=== PATIENT | female | born 1940 | race Caucasian/White ===

== ENCOUNTER 2018-11-05 02:27 | Inpatient (IN) ==
--- NOTE | 2018-11-05 02:46 | Emergency Department Note ---
Disposition Clinical Impression: Atrial fibrillation with rapid ventricular response, Bronchitis with bronchospasm Dyspnea Qualifiers: Dyspnea type: shortness of breath Qualified Code(s): R06.02 - Shortness of breath Disposition: Admitted As Inpatient Condition: Fair Time of Disposition: 03:56 SOB HPI - General Chief Complaint: ED Shortness of Breath/Dyspnea Stated Complaint: Dyspnea onset 8 hours ago Time Seen by Provider: 11/05/18 02:41 Source: patient, EMS Mode of arrival: EMS Limitations: no limitations Nursing Notes Reviewed: Yes Vital Signs Reviewed: Yes - History of Present Illness Patient presents with a history of increased dyspnea over the last 8 hours. She states she has felt dry in her mouth and had some nausea and has vomited a couple times. She believes she might of pulled diarrhea just on arrival of EMS. He has not had significant swelling on arrival here. She has reported cough productive of some scant yellow phlegm. She reports chills but no definite fever. She denies associated chest pain but just the dyspnea. She has not had any ill exposures to GI illness or respiratory. She denies any foodborne illness concerns or recent antibiotic. She denies any abdominal pain and has had normal urination. She denies extremity swelling, immobilization or pain. She relates she was seen by one of her physicians last week and had a blood pressure of 150/90. She has not had a change to her blood pressure medicine. She is brought in by EMS with an IV established and Zofran given for nausea. She has no further nausea at this time. Her blood pressure was elevated about 160/110. She was saturating at 88% on room air is not on home oxygen. She would run about 91% on 2 L and 94% on 3 L. She arrives with some dyspnea and mild tachypnea but also speaking easily and persistently. Pt Subjective Complaint: shortness of breath Onset (ago): day(s) (1) Context: recent illness Severity: moderate, severe Consistency/Duration: gradually worsening Improves with: nothing Worsens with: coughing Known history of: asthma Associated symptoms: Reports: cough, wheezing, sputum production, nausea/vomiting. Denies: chest pain, pain with inspiration, fever, orthopnea, lower extremity pain, polyuria, polydipsia, parasthesias, palpitations, hemoptysis, diaphoresis, syncope, abdominal pain, rash, sense of impending doom Treatment prior to arrival: oxygen Cough present: Yes Cough Description: Voluntary, Productive Cough Frequency: Intermittent Sputum production: Yes Sputum Amount: Small Sputum Color: Yellow - Related Data Home oxygen amount: none Home Medications Medication Instructions Recorded Confirmed Aspirin Enteric Coated [Aspirin EC] 81 mg PO DAILY 02/18/15 11/05/18 Atorvastatin Calcium [Lipitor] 20 mg PO DAILY 02/18/15 11/05/18 Calcium Carbonate/Vitamin D3 1 each PO DAILY 02/18/15 11/05/18 [Calcium 600 + D Tablet] Levothyroxine [Synthroid] [place] [address]/18/15 11/05/18 Multivitamin/Iron/Folic Acid 1 tab PO DAILY 02/18/15 11/05/18 [Centrum Complete Multivit Tab] Amlodipine Besylate 2.5 mg PO DAILY 02/28/16 11/05/18 Vit C/E/Zn/Coppr/Lutein/Zeaxan 2 tab PO DAILY 02/28/16 11/05/18 [Preservision Areds 2 Softgel] Gabapentin [Neurontin] 300 mg PO DAILY 07/16/17 11/05/18 Albuterol Sulfate [Proair 2 puff IH PRN PRN 09/20/17 11/05/18 Respiclick] Budesonide/Formoterol 160/4.5 2 puff IH BIDR 09/20/17 11/05/18 [Symbicort 160/4.5] Glimepiride [Amaryl] 1 mg PO DAILY 09/20/17 11/05/18 Metoprolol Tartrate [Lopressor] 50 mg PO BID 09/20/17 11/05/18 Metformin HCl [Glucophage] 1,000 mg PO HS 09/19/18 11/05/18 metFORMIN [Glucophage] 500 mg PO DAILY 11/05/18 11/05/18 Previous Rx's Medication Instructions Recorded Olmesartan Medoxomil [Benicar] 40 mg PO DAILY #30 tablet 07/20/17 Allergies Allergy/AdvReac Type Severity Reaction Status Date / Time codeine AdvReac Nausea Verified 11/05/18 03:38 Iodinated Contrast- Oral and AdvReac Hives Verified 11/05/18 03:38 IV Dye [Iodinated Contrast Media - IV Dye] All systems ED: reviewed and negative except as stated. Past Medical History - Past Medical History Attestation: Yes The following information was validated with the patient. Source: patient, nursing notes reviewed Medical history: Reports: asthma, cancer (Thyroid and ductal breast cancer), diabetes, hyperlipidemia, hypertension, thyroid disease, other (Meningioma, left bundle branch block with frequent PVCs). Denies: CHF, coronary artery disease, DVT, myocardial infarction, pulmonary embolus Surgical history: Reports: breast surgery (Lumpectomy), cancer surgery (Thyroidectomy), cholecystectomy, herniorrhaphy, hysterectomy, orthopedic, other (Bilateral carpal tunnel), thyroidectomy Psychiatric history: Reports: no psych history COUNTY CORONER history: Reports: no COUNTY CORONER history - Social History Smoking Status: Never smoker Smokeless Tobacco Status: No Alcohol use: Reports: none Drug use: Reports: none Physical Exam - General Limitations: no limitations General appearance: alert, in no apparent distress, anxious - Head Head exam: atraumatic, normocephalic, normal inspection - Eye Eye exam: Present: normal appearance, PERRL, EOMI. Absent: scleral icterus, conjunctival injection - ENT ENT exam: normal exam, normal oropharynx, mucous membranes moist - Neck Neck exam: Present: normal inspection, full ROM, trachea midline. Absent: tenderness, meningismus, lymphadenopathy - Chest Chest inspection: Present: normal inspection, symmetric chest wall rise - Respiratory Respiratory exam: Present: prolonged expiratory phase. Absent: respiratory distress, wheezes, accessory muscle use - Cardiovascular Cardiovascular exam: Present: tachycardia, irregular rhythm - Abdominal Exam Abdominal exam: Present: soft, Non-Tender, normal bowel sounds. Absent: tenderness, distention, guarding, rebound, rigidity, mass, pulsatile mass, hernia - Extremities Exam Extremities exam: Present: normal inspection, full ROM, normal capillary refill. Absent: tenderness, pedal edema, calf tenderness - Expanded Lower Extremity Exam Neurovascular/Tendon exam: Present: normal capillary refill. Absent: motor deficit, sensory deficit, tendon deficit Gait: not tested/not observed - Back Exam Back exam: Present: normal inspection, full ROM. Absent: tenderness - Neurological Exam Neurological exam: Present: alert, oriented X3 - Psychiatric Psychiatric exam: Present: normal affect, anxious - Skin Skin exam: Present: warm, dry, intact, normal color. Absent: cyanosis, diaphoresis, pallor Course Course Narrative: Patient was seen immediately on arrival. Some of her history is somewhat difficult. She is able to say she had a blockage of the left side of her heart and his had irregular heartbeat. She does not appear to have history of atrial fibrillation does have chronic history of a left bundle-branch block. She has had a cardiac catheterization performed 2013 that was negative. She does not have history of heart failure, coronary disease, DVT or PE by old record or patient history. Given her cough, yellow sputum hypoxia she is started on r espiratory protocol home with a DuoNeb aerosol and administration of Rocephin, azithromycin and a dose of Solu-Medrol. Fluids are liberalized with a bolus pending return of x-ray and laboratory and will be curtailed if there is evidence for pulmonary edema. 0328: Patient's pressure is improved to 135/87 with a heart rate of 103. Heart rate still remains irregular on the monitor. She is saturating 94% with a respiratory rate of 24. She is speaking in full sentences. 0347: The patient continues to show improvement. She has a rate of 92 and respiratory rate of 18 and oxygen saturation 94%. Laboratory is remarkable for a lactic acid of 3.3. She has a mild leukocytosis. Her creatinine and CO2 are delayed. Chest x-ray is read by radiology as mild increase interstitial edema and a BNP of 606. Her IV fluids will be slowed after the first liter. Care has been discussed with the patient and family present. I recommended observation and a call has been placed to Dr. Dooley for inpatient observation. Patient's presentation and treatment of been discussed with Dr. Dooley. Verbal orders have been obtained for her observation. Vital Signs Temperature 97.8 F 11/05/18 02:30 Pulse Rate 108 11/05/18 02:30 Respiratory Rate 18 11/05/18 02:30 Blood Pressure 168/122 11/05/18 02:30 O2 Sat by Pulse Oximetry 93 11/05/18 02:30 Temperature 97.4 F L 11/05/18 04:44 Pulse Rate 104 11/05/18 04:44 Respiratory Rate 22 11/05/18 04:44 Blood Pressure 142/94 11/05/18 04:44 O2 Sat by Pulse Oximetry 90 11/05/18 04:44 Oxygen Delivery Oxygen Delivery Nasal Cannula Shortness of Breath/Dyspnea - Differential Diagnosis Likely: acute exacerbation of chronic obstructive airways disease, congestive heart failure, pneumonia, asthma with exacerbation, arrhythmia - Medical Records Medical records reviewed: Yes I reviewed the patient's medical records. MR/MR head/brain wo/w con IMPRESSION: Dural-based, homogeneously enhancing extra-axial mass arising from the inferior margin of the tentorium to the right of midline invading into the right transverse sinus which remains patent. This is most consistent with a meningioma. No significant mass effect or midline shift. D/ / 10/16/2018 10:47:24 Tony Calabrese MD / [place] - Lab Data Lab results reviewed: Yes I reviewed the patient's lab results. Result diagrams: 11/05/18 03:05 11/05/18 03:05 Lab Results 11/05/18 11/05/18 11/05/18 Range/Units 03:05 03:05 03:05 WBC 12.1 H (4.3-11.1) K/mcL RBC 4.59 (3.82-4.97) M/mcL Hgb 14.7 (11.5-15.4) g/dL Hct 43.5 (35.3-44.9) % MCV 94.8 (83.0-100.0) fL MCH 32.0 (28.0-33.3) pg MCHC 33.8 (31.6-35.5) g/dL RDW 13.1 (11.5-14.5) % Plt Count 209 (140-400) K/mcL MPV 10.5 (9.4-12.4) fL Immature Gran % 0.3 (0-4) % Seg Neutrophils % 75.1 % Lymphocytes % 17.7 % Monocytes % 6.1 % Eosinophils % 0.4 % Basophils % 0.4 % Neutrophils # 9.1 H (1.6-8.9) K/mcL Lymphocytes # 2.1 (0.6-4.6) K/mcL Monocytes # 0.7 (0.0-1.3) K/mcL Eosinophils # 0.1 (0.0-0.6) K/mcL Basophils # 0.1 (0.0-0.2) K/mcL PT 12.5 H (9.4-12.1) Seconds INR 1.1 Sodium 136 (136-145) mEq/L Potassium 3.9 (3.5-5.1) mEq/L Chloride 100 (98-107) mEq/L Carbon Dioxide 22 L (23-29) mEq/L BUN 12 (8-23) mg/dL Creatinine 0.84 (0.60-1.20) mg/dL Est GFR ( Amer) > 60 (> 60) Est GFR (Non-Af Amer) > 60 (> 60) BUN/Creatinine Ratio 14 (6-26) Glucose 205 H (70-105) mg/dL Calculated Osmolality 288 (280-300) Lactic Acid (0.5-2.2) mmol/L Calcium 9.0 (8.6-10.3) mg/dL Total Bilirubin 0.6 (0.3-1.0) mg/dL Direct Bilirubin 0.1 (0.0-0.2) mg/dL Indirect Bilirubin 0.5 (0.0-1.2) mg/dL AST 26 (13-39) Units/L ALT 25 (7-52) Units/L Alkaline Phosphatase 54 (34-104) Units/L Troponin I < 0.03 (< 0.04) ng/mL B-Natriuretic Peptide (Less than 100) pg/mL Serum Total Protein 7.3 (6.4-8.9) g/dL Albumin 4.2 (3.5-5.7) g/dL Globulin 3.1 (2.4-3.5) g/dL Albumin/Globulin Ratio 1.4 (1.1-2.2) 11/05/18 11/05/18 Range/Units 03:05 03:15 WBC (4.3-11.1) K/mcL RBC (3.82-4.97) M/mcL Hgb (11.5-15.4) g/dL Hct (35.3-44.9) % MCV (83.0-100.0) fL MCH (28.0-33.3) pg MCHC (31.6-35.5) g/dL RDW (11.5-14.5) % Plt Count (140-400) K/mcL MPV (9.4-12.4) fL Immature Gran % (0-4) % Seg Neutrophils % % Lymphocytes % % Monocytes % % Eosinophils % % Basophils % % Neutrophils # (1.6-8.9) K/mcL Lymphocytes # (0.6-4.6) K/mcL Monocytes # (0.0-1.3) K/mcL Eosinophils # (0.0-0.6) K/mcL Basophils # (0.0-0.2) K/mcL PT (9.4-12.1) Seconds INR Sodium (136-145) mEq/L Potassium (3.5-5.1) mEq/L Chloride (98-107) mEq/L Carbon Dioxide (23-29) mEq/L BUN (8-23) mg/dL Creatinine (0.60-1.20) mg/dL Est GFR ( Amer) (> 60) Est GFR (Non-Af Amer) (> 60) BUN/Creatinine Ratio (6-26) Glucose (70-105) mg/dL Calculated Osmolality (280-300) Lactic Acid 3.3 H (0.5-2.2) mmol/L Calcium (8.6-10.3) mg/dL Total Bilirubin (0.3-1.0) mg/dL Direct Bilirubin (0.0-0.2) mg/dL Indirect Bilirubin (0.0-1.2) mg/dL AST (13-39) Units/L ALT (7-52) Units/L Alkaline Phosphatase (34-104) Units/L Troponin I (< 0.04) ng/mL B-Natriuretic Peptide 603 H (Less than 100) pg/mL Serum Total Protein (6.4-8.9) g/dL Albumin (3.5-5.7) g/dL Globulin (2.4-3.5) g/dL Albumin/Globulin Ratio (1.1-2.2) - Radiology Data Radiology results reviewed: Yes I reviewed the patient's radiology results. Single view chest x-rays performed. This shows some patchy increased interstitial markings are most consistent right base. This is suggestive of possible infiltrate and seems less likely to be heart failure. This is new from CT imaging from October 08. Cardiac silhouette is mildly enlarged. She is not having effusion or pneumothorax. This is on my interpretation. Impressions Chest X-Ray 11/05/18 02:48 IMPRESSION: Mild cardiomegaly. Moderate pulmonary interstitial edema. D/ / Anel Wilkinson MD / Anel Wilkinson MD Interpreting Provider: Anel Wilkinson MD - EKG Data EKG attestation: Yes I reviewed and interpreted this EKG. EKG shows normal: Reports: axis, ST-T waves Rate: Reports: normal (96) Rhythm: Reports: A.Fib Carter/QRS: Reports: LBBB Interpretation: Reports: other (New-onset atrial fibrillation with chronic left bundle-branch block)
[2018-11-05] MEDS ORDERED: methylPREDNISolone 125 MG/2 ML VIAL IVP ONE (02:48)
[2018-11-05] MEDS ORDERED: Ipratropium/Albuterol Neb 3 ML IH ONE (02:48)
[2018-11-05] MEDS ORDERED: 0.9 % Sodium Chloride 1,000 ML IVC ONE (02:48)
[2018-11-05] MEDS ORDERED: Azithromycin 500 MG in D5% in Water 250 ML IVPB ONE (02:48)
[2018-11-05] MEDS ORDERED: cefTRIAXone 2,000 MG in Water for inj. (sterile) 10 ML IVP ONE (02:48)
[2018-11-05 03:24] LABS: Basophils # 0.1 K/mcL (0.0-0.2); Basophils % 0.4 %; Eosinophils # 0.1 K/mcL (0.0-0.6); Eosinophils % 0.4 %; Hematocrit 43.5 % (35.3-44.9); Hemoglobin 14.7 g/dL (11.5-15.4); Immature Granulocytes % 0.3 % (0-4); Lymphocytes # 2.1 K/mcL (0.6-4.6); Lymphocytes % 17.7 %; Mean Corpuscular HGB Conc 33.8 g/dL (31.6-35.5); Mean Corpuscular Volume 94.8 fL (83.0-100.0); Mean Platelet Volume 10.5 fL (9.4-12.4); Monocytes # 0.7 K/mcL (0.0-1.3); Monocytes % 6.1 %; Neutrophils # 9.1 K/mcL (1.6-8.9); Platelet Count 209 K/mcL (140-400); Red Blood Count 4.59 M/mcL (3.82-4.97); Red Cell Distribution Width 13.1 % (11.5-14.5); Segmented Neutrophils % 75.1 %; White Blood Count 12.1 K/mcL (4.3-11.1)
[2018-11-05 03:32] LABS: INR 1.1; Prothrombin Time 12.5 Seconds (9.4-12.1)
[2018-11-05 03:43] LABS: Troponin I < 0.03 ng/mL (< 0.04)
[2018-11-05 03:46] LABS: Alanine Aminotransferase 25 Units/L (7-52); Albumin 4.2 g/dL (3.5-5.7); Alkaline Phosphatase 54 Units/L (34-104); Aspartate Amino Transferase 26 Units/L (13-39); Bilirubin,Direct 0.1 mg/dL (0.0-0.2); Bilirubin,Indirect 0.5 mg/dL (0.0-1.2); Bilirubin,Total 0.6 mg/dL (0.3-1.0); Blood Urea Nitrogen 12 mg/dL (8-23); Chloride 100 mEq/L (98-107); Glucose 205 mg/dL (70-105); Osmolality,Calculated 288 (280-300); Potassium 3.9 mEq/L (3.5-5.1); Sodium 136 mEq/L (136-145)
[2018-11-05 04:27] LABS: Bilirubin,Urine Negative (Negative); Blood,Urine Trace-intact (Negative); Clarity,Urine Slightly Cloudy (Clear); Glucose,Urine (UA) 100 mg/dL (Normal); Ketones,Urine Trace mg/dL (Negative); Leukocyte Esterase,Urine Negative (Negative); Nitrite,Urine Negative (Negative); PH,Urine 5.5 pH Units (5.0-8.0); Protein,Urine 100 mg/dL (Neg-Trace); Specific Gravity,Urine 1.025 (1.010-1.025); Urobilinogen,Urine Normal (Normal)
[2018-11-05 04:31] LABS: Color,Urine Light Yellow (Yellow)
[2018-11-05 04:37] LABS: Hyaline Casts,Urine Few per lpf (None-Few); Squamous Epithelial Cell,Urine Few per lpf (None-Few)
[2018-11-05 04:38] LABS: RBC,Urine 0-3 per hpf (0-3)
[2018-11-05 04:39] LABS: Bacteria,Urine Few per hpf (None-Few); Mucus,Urine Few (Few); Renal Epithelial Cells,Urine Few per hpf (None-Few); WBC,Urine 0-3 per hpf (0-3)
[2018-11-05] MEDS ORDERED: Naloxone 0.4 MG/ML INJ IVP PRN (04:39)
[2018-11-05] MEDS ORDERED: Ondansetron ODT 4 MG TAB.RAPDIS SL PRN (04:39)
[2018-11-05] MEDS ORDERED: Mag Hydrox/Al Hydrox/Simeth 30 ML UDC PO PRN (04:39)
[2018-11-05] MEDS ORDERED: Albuterol 2.5 MG/3 ML NEBULIZER IH PRN (04:39)
[2018-11-05] MEDS ORDERED: *HR* Dextrose 50 % in Water (Syg) 50 ML SYRINGE IVP PRN (04:39)
[2018-11-05] MEDS ORDERED: D5% in Water 1,000 ML IVC PRN (04:39)
[2018-11-05] MEDS ORDERED: MOM Conc 10 ML UD.LIQ PO PRN (04:39)
[2018-11-05] MEDS ORDERED: 0.9 % Sodium Chloride 1,000 ML IVC SCH (04:39)
[2018-11-05] MEDS ORDERED: Dextrose Gel 15 GM/37.5 ML TUBE PO PRN ×2 (04:39)
[2018-11-05 05:14] LABS: Carbon Dioxide 22 mEq/L (23-29)
[2018-11-05 05:15] LABS: Albumin/Globulin Ratio 1.4 (1.1-2.2); BUN/Creatinine Ratio 14 (6-26); Globulin 3.1 g/dL (2.4-3.5); Total Protein 7.3 g/dL (6.4-8.9); eGFR For African Americans > 60 (> 60); eGFR For Non-African Americans > 60 (> 60)
[2018-11-05] MEDS: Insulin LISPRO 300 UNITS/3 ML VIAL SQ SCH ×3 (07:48→16:32)
[2018-11-05] MEDS ORDERED: predniSONE 20 MG TABLET PO SCH (08:00)
[2018-11-05] MEDS ORDERED: Ipratropium/Albuterol Neb 3 ML IH SCH (10:00)
[2018-11-05] MEDS ORDERED: *HR* Digoxin 0.5 MG/2 ML AMPUL IVP ONE (10:01)
[2018-11-05] MEDS ORDERED: Bumetanide 1 MG/4 ML VIAL IVP ONE (10:05)
[2018-11-05] MEDS ORDERED: *HR* Metoprolol 5 MG/5 ML VIAL IVP ONE (10:06)
--- NOTE | 2018-11-05 10:13 | Internal Med History&Physical ---
Date of Encounter: 11/05/18 Time of Encounter: 09:40 Assessment and Plan (1) Atrial fibrillation with rapid ventricular response Current visit: Yes Status: Acute She will be given IV Lanoxin and metoprolol to slow ventricular rate. Eliquis will be started for CVA prophylaxis. Continue telemetry monitoring. (2) Heart failure Current visit: Yes Status: Chronic Repeat echocardiogram will be done. She will be given IV Bumex. Toprol and Lanoxin will be given to slow ventricular rate. Pro-calcitonin level be checked to further evaluate possible superimposed infection. Qualifiers: Heart failure type: unspecified Heart failure chronicity: acute on chronic Qualified Code(s): I50.9 - Heart failure, unspecified (3) Leukocytosis Current visit: Yes Status: Acute WBC 12.1 with borderline left shift on differential. She has been started on Rocephin and Zithromax. Qualifiers: Leukocytosis type: unspecified Qualified Code(s): D72.829 - Elevated white blood cell count, unspecified (4) HTN (hypertension) Current visit: Yes Status: Chronic Continue metoprolol, Benicar and amlodipine. Qualifiers: Hypertension type: essential hypertension Qualified Code(s): I10 - Essential (primary) hypertension (5) DM type 2 (diabetes mellitus, type 2) Current visit: No Status: Chronic Hemoglobin A1c satisfactory at 6.1% on 08/13/2018. Continue Glucophage and Accu-Cheks with SSI. Qualifiers: Diabetes mellitus complication status: without complication Qualified Code(s): E11.9 - Type 2 diabetes mellitus without complications (6) B12 deficiency Current visit: No Status: Acute B12 level low at 203 on 09/14/2017. Recheck in a.m. (7) Hyperuricemia Current visit: Yes Status: Acute Uric acid level elevated at 10.3 on 07/18/2017. Recheck in a.m. Internal Medicine - H&P: HPI Chief complaint: Dyspnea Admitted From: Emergency Dept Plans for Post Hospital Care: Home History of present illness: Ms. Keyes is a 78 year old female who came to emergency room stating she had onset of dyspnea approximately 1700 day of admission while doing usual activities. There was no chest pain associated. There was minimal nonproductive cough. Dyspnea seemed to increase over ensuing hours. She came to emergency room and was evaluated and was found to have AF with RVR. It was also felt she had bronchitis with bronchospasm. She was admitted to [facility] floor for ongoing care needs. Cardiovascular history is pertinent for hypertension but no known NV angina DVT or pulmonary embolus. She has history of heart failure. Echocardiogram 02/25/2016 showed LVEF of 60-65%. There was mild aortic regurgitation. The interventricular septum and posterior wall thickness measurements were elevated at 1.30 and 1.20 cm respectively. E/A ratio was 1.2. There was reportedly no evidence of pulmonary hypertension although estimate RVSP was not recorded. She has history of atrial fibrillation. She is on aspirin but not OAC. Respiratory history significant for being a lifelong nonsmoker and having no documented chronic lung disease. Past Med Surg Social Fam HX - Past Medical History Medical history: asthma, cancer, diabetes, hyperlipidemia, hypertension, thyroid disease, other Additional medical history: thyriod cancer 2004, 2005 breast cancer Psychiatric history: no psych history - Past Surgical History Surgical History: breast surgery, cancer surgery, cholecystectomy, herniorrhaphy, hysterectomy, orthopedic, other, thyroidectomy Additional surgical history: Bilateral carpal tunnel - Social History Smoking Status: Never smoker Smokeless Tobacco Status: No Alcohol use: none Drug use: none - Family History Son Family Member Ethnicity: Non- Living Status: Hx Family Cardiac Disorders: Yes Hx Family Respiratory Disorders: No Hx Family Cancer: Yes Hx Family GI Disorders: No Hx Family Endocrine Disorder: No Hx Family Neuromuscular Disorders: No Hx Family Neurologic Disorders: No Hx Family HEENT Disorders: No Hx Family Autoimmune Disorders: No Internal Medicine - H&P: Meds Aspirin Enteric Coated [Aspirin EC] 81 mg PO DAILY 02/18/15 [History] Atorvastatin Calcium [Lipitor] 20 mg PO DAILY 02/18/15 [History] Calcium Carbonate/Vitamin D3 [Calcium 600 + D Tablet] 1 each PO DAILY 02/18/15 [History] Levothyroxine [Synthroid] 100 mcg PO 0630 02/18/15 [History] Multivitamin/Iron/Folic Acid [Centrum Complete Multivit Tab] 1 tab PO DAILY 02/18/15 [History] Amlodipine Besylate 2.5 mg PO DAILY 02/28/16 [History] Vit C/E/Zn/Coppr/Lutein/Zeaxan [Preservision Areds 2 Softgel] 2 tab PO DAILY 02/28/16 [History] Gabapentin [Neurontin] 300 mg PO DAILY 07/16/17 [History] Olmesartan Medoxomil [Benicar] 40 mg PO DAILY #30 tablet 07/20/17 [Rx] Albuterol Sulfate [Proair Respiclick] 2 puff IH PRN PRN 09/20/17 [History] Budesonide/Formoterol 160/4.5 [Symbicort 160/4.5] 2 puff IH BIDR 09/20/17 [History] Glimepiride [Amaryl] 1 mg PO DAILY 09/20/17 [History] Metoprolol Tartrate [Lopressor] 50 mg PO BID 09/20/17 [History] Metformin HCl [Glucophage] 1,000 mg PO HS 09/19/18 [History] metFORMIN [Glucophage] 500 mg PO DAILY 11/05/18 [History] Allergy/AdvReac Type Severity Reaction Status Date / Time codeine AdvReac Nausea Verified 11/05/18 03:38 Iodinated Contrast- Oral and AdvReac Hives Verified 11/05/18 03:38 IV Dye [Iodinated Contrast Media - IV Dye] All Systems PM: A 10-system review of systems was performed and is negative for pertinent findings except as documented above in the HPI. Review of systems: Review of systems from her 02/19/2015 [facility] hospitalization were reviewed and revised as below. Gen.: Her weight has been stable at approximately 62 kg since February 2015 hospitalization. Cardiovascular: As per history of present illness Respiratory: As per history of present illness GI: She has had cholecystectomy. She had colonoscopy approximately 2011 which she states was unremarkable. She denies disorders of her liver or exocrine pancreas. : She has had UTIs in the past. Reports remote kidney stone without recurrence. She denies other kidney or bladder disorders. Neurologic: She denies large distribution strokes or seizures. Endocrine: She was diagnosed with DM 2 approximately 2004. She had thyroidectomy for thyroid cancer in the past and is now on replacement le vothyroxine. She has history of hyperlipidemia Hematology/oncology: She had thyroid cancer with resection 2004. She had left breast cancer with lumpectomy 2005 followed by XRT. She follows with oncology at [facility] and is presumed cancer free. She denies other blood disorders or anemia Musk skeletal: She has had bilateral hand surgery for nodule removal and bilateral carpal tunnel surgery. She has a diagnosis of osteopenia. - Constitutional Vitals: Temp Pulse Resp BP Pulse Ox 97.6 F 140 20 136/65 94 11/05/18 07:12 11/05/18 07:56 11/05/18 07:12 11/05/18 07:56 11/05/18 07:56 Exam: Gen.: She is a well developed well-nourished female lying in bed who appears slightly dyspneic HEENT: Head is atraumatic and normocephalic. Eyes: EOMI. There is no scleral icterus. Mouth: Mucosa is moist. Neck: Supple and nontender. There is no thyromegaly or adenopathy noted. Heart: Irregularly irregular with rate approximately 160/m. Lungs: No wheezes or crackles are heard. Back: Straight without flank tenderness presacral edema Abdomen: Soft and nontender. No masses or guarding are noted. Extremities: There is no cyanosis edema or clubbing noted. Dorsalis pedis and posterior tibial pulses are trace to 1+ palpable bilaterally. Neurologic: Mental status: She is talkative and a good historian. Cranial nerves: Smile is symmetric. Forehead wrinkles bilaterally. Tongue protrudes midline. EOMI. Motor: There is no pronator drift. Cerebellar: Finger to nose is intact bilaterally. Skin: Warm and dry Internal Med - H&P Results - Labs CBC & Chem 7: 11/05/18 03:05 11/05/18 03:05 Labs: Short CBC 11/05/18 Range/Units 03:05 WBC 12.1 H (4.3-11.1) K/mcL Hgb 14.7 (11.5-15.4) g/dL Hct 43.5 (35.3-44.9) % Plt Count 209 (140-400) K/mcL Neutrophils # 9.1 H (1.6-8.9) K/mcL BMP 11/05/18 03:05 Sodium 136 Potassium 3.9 Chloride 100 Carbon Dioxide 22 L BUN 12 Creatinine 0.84 Glucose 205 H Calcium 9.0 Cardiac Enzymes 11/05/18 11/05/18 Range/Units 03:05 09:08 Troponin I < 0.03 0.03 (< 0.04) ng/mL Liver Function 11/05/18 Range/Units 03:05 Total Bilirubin 0.6 (0.3-1.0) mg/dL Direct Bilirubin 0.1 (0.0-0.2) mg/dL AST 26 (13-39) Units/L ALT 25 (7-52) Units/L Alkaline Phosphatase 54 (34-104) Units/L Albumin 4.2 (3.5-5.7) g/dL Urine 11/05/18 Range/Units 04:26 Urine Color Light Yellow (Yellow) Urine Clarity Slightly Cloudy A (Clear) Urine pH 5.5 (5.0-8.0) pH Units Ur Specific [place] 1.025 (1.010-1.025) Urine Protein 100 H (Neg-Trace) mg/dL Urine Glucose (UA) 100 H (Normal) mg/dL - Impressions ITS Impressions Chest X-Ray 11/05/18 02:48 IMPRESSION: Mild cardiomegaly. Moderate pulmonary interstitial edema. D/ / Anel Wilkinson MD / Aenl Wilkinson MD Interpreting Provider: Anel Wilkinson MD
[2018-11-05] MEDS: predniSONE 20 MG TABLET PO SCH ×2 (10:58→16:32)
[2018-11-05] MEDS: amLODIPine 5 MG TABLET PO SCH (12:05)
[2018-11-05] MEDS: Apixaban 5 MG TABLET PO SCH ×2 (12:05→20:19)
--- NOTE | 2018-11-05 13:45 | Electrocardiograph Report ---
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
[2018-11-05] MEDS ORDERED: Acetaminophen/Aspirin/Caffeine TABLET PO PRN (21:26)
[2018-11-06] MEDS: Insulin LISPRO 300 UNITS/3 ML VIAL SQ SCH ×5 (00:14→20:31)
[2018-11-06 06:15] LABS: Basophils % 0.1 %; Hematocrit 34.3 % (35.3-44.9); Hemoglobin 11.7 g/dL (11.5-15.4); Immature Granulocytes % 0.7 % (0-4); Lymphocytes # 0.9 K/mcL (0.6-4.6); Lymphocytes % 8.2 %; Mean Corpuscular HGB Conc 34.1 g/dL (31.6-35.5); Mean Corpuscular Hemoglobin 31.7 pg (28.0-33.3); Monocytes # 0.7 K/mcL (0.0-1.3); Monocytes % 6.7 %; Neutrophils # 8.9 K/mcL (1.6-8.9); Platelet Count 165 K/mcL (140-400); Red Blood Count 3.69 M/mcL (3.82-4.97); Red Cell Distribution Width 12.9 % (11.5-14.5); Segmented Neutrophils % 84.3 %; White Blood Count 10.5 K/mcL (4.3-11.1)
[2018-11-06 06:34] LABS: BUN/Creatinine Ratio 25 (6-26); Blood Urea Nitrogen 21 mg/dL (8-23); Calcium 8.4 mg/dL (8.6-10.3); Carbon Dioxide 23 mEq/L (23-29); Chloride 101 mEq/L (98-107); Glucose 157 mg/dL (70-105); Magnesium 1.9 mg/dL (1.6-2.6); Osmolality,Calculated 282 (280-300); Potassium 4.4 mEq/L (3.5-5.1); Sodium 133 mEq/L (136-145); Uric Acid 6.5 mg/dL (2.3-7.6); eGFR For African Americans > 60 (> 60); eGFR For Non-African Americans > 60 (> 60)
[2018-11-06 06:52] LABS: Thyroid Stimulating Hormone 0.494 mcIU/mL (0.340-5.600)
[2018-11-06] MEDS ORDERED: Azithromycin 500 MG in D5% in Water 250 ML IVPB SCH (09:00)
[2018-11-06] MEDS: Apixaban 5 MG TABLET PO SCH ×2 (09:32→20:30)
[2018-11-06] MEDS: predniSONE 20 MG TABLET PO SCH (09:33)
[2018-11-06] MEDS: amLODIPine 5 MG TABLET PO SCH (09:33)
[2018-11-06] MEDS ORDERED: cefTRIAXone 2,000 MG in Water for inj. (sterile) 20 ML IVPB SCH (12:00)
[2018-11-06] MEDS ORDERED: Cyanocobalamin (B-12) 1,000 MCG/ML VIAL IM ONE (14:19)
--- NOTE | 2018-11-06 14:39 | Internal Med Progress Note ---
Date of Encounter: 11/06/18 Time of Encounter: 14:25 - Assessment and plan (1) Atrial fibrillation with rapid ventricular response Current Visit: Yes Status: Acute Assessment and plan: November 06. Remains in atrial fibrillation but rate is now controlled. Continue metoprolol. Continue Eliquis for CVA prophylaxis. (2) Heart failure Current Visit: Yes Status: Chronic Assessment and plan: November 06. Echocardiogram shows LVEF of 50%. There was indeterminate diastolic function assessment due to atrial fibrillation. There was mild to moderate mitral regurgitation, [id number] aortic regurgitation, and mild tricuspid regurgitation. Estimated RVSP was 25 mmHg. The interventricular septum and posterior wall thickness measurements were 1.30 cm each. Metoprolol and ARB will be continued. Bumex will be added. Qualifiers: Heart failure type: unspecified Heart failure chronicity: acute on chronic Qualified Code(s): I50.9 - Heart failure, unspecified (3) Leukocytosis Current Visit: Yes Status: Acute Assessment and plan: November 06. WBC normal at 10.5. Left shift is present. She remains afebrile. Pro-calcitonin level was < 0.02. Recheck labs in a.m. Qualifiers: Leukocytosis type: unspecified Qualified Code(s): D72.829 - Elevated white blood cell count, unspecified (4) HTN (hypertension) Current Visit: Yes Status: Chronic Assessment and plan: November 06. Blood pressure stable. Continue metoprolol, ARB, and amlodipine. Qualifiers: Hypertension type: essential hypertension Qualified Code(s): I10 - Essential (primary) hypertension (5) DM type 2 (diabetes mellitus, type 2) Current Visit: No Status: Chronic Assessment and plan: November 06. Hemoglobin A1c satisfactory at 6.1% on 08/13/2018. Continue Glucophage and Accu-Cheks with SSI. Qualifiers: Diabetes mellitus complication status: without complication Qualified Code(s): E11.9 - Type 2 diabetes mellitus without complications (6) B12 deficiency Current Visit: No Status: Acute Assessment and plan: November 06. B12 level low at 153. She will be given a B12 injection and start oral B12 supplement. (7) Hyperuricemia Current Visit: Yes Status: Acute Assessment and plan: November 06. Uric acid level normal at 6.5. - Subjective Interval history: November 06. She has no new complaints and feels better overall. She has minimal residual dyspnea. - Constitutional Vitals: Temp Pulse Resp BP Pulse Ox 97.6 F 91 17 120/70 98 11/06/18 11:16 11/06/18 11:16 11/06/18 11:16 11/06/18 11:16 11/06/18 11:16 Exam: She is resting comfortably in bed and appears in no acute distress. Heart is irregularly irregular with rate 92/m. Lungs are clear anteriorly. Extremities show no edema. She is wearing ADAM hose. I reviewed her medications and lab results. Internal Medicine: Result - Labs CBC & Chem 7: 11/06/18 04:51 11/06/18 04:51 Labs: Short CBC 11/06/18 Range/Units 04:51 WBC 10.5 (4.3-11.1) K/mcL Hgb 11.7 D (11.5-15.4) g/dL Hct 34.3 L (35.3-44.9) % Plt Count 165 (140-400) K/mcL Neutrophils # 8.9 (1.6-8.9) K/mcL BMP 11/06/18 04:51 Sodium 133 L Potassium 4.4 Chloride 101 Carbon Dioxide 23 BUN 21 Creatinine 0.85 Glucose 157 H Calcium 8.4 L - ABG Interpretation ABG results: PT/INR, D-dimer PT 12.5 Seconds (9.4-12.1) H 11/05/18 03:05 - Impressions Impressions Echocardiogram 11/05/18 10:59 Impressions: LVEF 50%. Indeterminate diastolic function. Mild LV concentric hypertrophy. Atypical septal motion consistent with bundle branch block. Normal right ventricular structure and function. Mild-moderate mitral regurgitation. Mild-moderate aortic regurgitation. Mild tricuspid regurgitation. No pulmonary hypertension. Left Ventricular Wall Motion: Rest Echo Findings All wall segments showed normal motion. Findings: Study Quality * Technically adequate exam. ECG Findings * Atrial fibrillation. Left Ventricle * LVEF 50%. * Indeterminate diastolic function. * Mild LV concentric hypertrophy. * Atypical septal motion consistent with bundle branch block. Right Ventricle * Normal right ventricular structure and function. Left Atrium * Moderately dilated left atrium. Right Atrium * Normal right atrial size. Mitral Valve * No mitral stenosis. * Mildly thickened mitral valve leaflets. * Moderate mitral annular calcification * Mild-moderate mitral regurgitation. Aortic Valve * Mild-moderate aortic regurgitation. * Aortic valve not well visualized. * Mildly calcified aortic valve leaflets. * No aortic stenosis. Tricuspid Valve * Mild tricuspid regurgitation. * Normal tricuspid valve structure. * Estimated RA pressure is 3 mmHg. * Estimated RVSP is 25 mmHg. * No pulmonary hypertension. Pulmonic Valve * Pulmonic valve is not well visualized. * No pulmonic stenosis. * Trace pulmonic regurgitation. Pulmonary Artery * Pulmonary artery not well visualized. Aorta * Normally sized aortic root. Pericardium * There is no pericardial effusion present. Interatrial Septum * No evidence of PFO by color Doppler. IVC * The IVC is not dilated. Consult Discharge Plan - Plan
[2018-11-06] MEDS: Bumetanide 1 MG TABLET PO SCH (15:21)
[2018-11-06] MEDS: *HR* Metformin 500 MG TABLET PO SCH (16:57)
[2018-11-07 06:57] LABS: Basophils % 0.1 %; Hematocrit 36.6 % (35.3-44.9); Hemoglobin 12.6 g/dL (11.5-15.4); Immature Granulocytes % 0.5 % (0-4); Lymphocytes % 21.9 %; Mean Corpuscular HGB Conc 34.4 g/dL (31.6-35.5); Mean Corpuscular Hemoglobin 32.1 pg (28.0-33.3); Mean Corpuscular Volume 93.4 fL (83.0-100.0); Mean Platelet Volume 10.8 fL (9.4-12.4); Monocytes # 0.8 K/mcL (0.0-1.3); Monocytes % 5.9 %; Neutrophils # 9.3 K/mcL (1.6-8.9); Platelet Count 187 K/mcL (140-400); Red Blood Count 3.92 M/mcL (3.82-4.97); Red Cell Distribution Width 13.2 % (11.5-14.5); Segmented Neutrophils % 71.6 %
[2018-11-07 07:11] LABS: Lymphocytes # 2.9 K/mcL (0.6-4.6)
[2018-11-07 07:14] VITALS: BP 144/101
[2018-11-07 07:21] LABS: BUN/Creatinine Ratio 26 (6-26); Blood Urea Nitrogen 22 mg/dL (8-23); Carbon Dioxide 29 mEq/L (23-29); Chloride 100 mEq/L (98-107); Glucose 87 mg/dL (70-105); Osmolality,Calculated 287 (280-300); Potassium 4.1 mEq/L (3.5-5.1); Sodium 137 mEq/L (136-145); eGFR For African Americans > 60 (> 60); eGFR For Non-African Americans > 60 (> 60)
[2018-11-07] MEDS: Insulin LISPRO 300 UNITS/3 ML VIAL SQ SCH (07:50)
[2018-11-07] MEDS: amLODIPine 5 MG TABLET PO SCH (08:05)
[2018-11-07] MEDS: Bumetanide 1 MG TABLET PO SCH (08:05)
[2018-11-07] MEDS: *HR* Metformin 500 MG TABLET PO SCH (08:06)
[2018-11-07] MEDS: Apixaban 5 MG TABLET PO SCH (08:06)
--- NOTE | 2018-11-07 10:10 | Discharge Summary ---
Orders not resulted at time of discharge: Pending orders 11/05/18 03:15 Culture,Blood [] Stat Date of Encounter: 11/07/18 Time of Encounter: 09:55 - Discharge Diagnosis (1) Atrial fibrillation with rapid ventricular response Priority: Primary Status: Acute (2) Heart failure Priority: Secondary Status: Chronic Qualifiers: Heart failure type: unspecified Heart failure chronicity: acute on chronic Qualified Code(s): I50.9 - Heart failure, unspecified (3) Leukocytosis Priority: Secondary Status: Acute Qualifiers: Leukocytosis type: unspecified Qualified Code(s): D72.829 - Elevated white blood cell count, unspecified (4) HTN (hypertension) Priority: Secondary Status: Chronic Qualifiers: Hypertension type: essential hypertension Qualified Code(s): I10 - Essential (primary) hypertension (5) DM type 2 (diabetes mellitus, type 2) Priority: Secondary Status: Chronic Qualifiers: Diabetes mellitus complication status: without complication Qualified Code(s): E11.9 - Type 2 diabetes mellitus without complications (6) B12 deficiency Priority: Secondary Status: Acute (7) Hyperuricemia Priority: Secondary Status: Resolved Hospital course: Ms. Keyes is a 78 year old female who came to emergency room stating she had onset of dyspnea approximately 1700 day of admission while doing usual activities. There was no chest pain associated. There was minimal nonproductive cough. Dyspnea seemed to increase over ensuing hours. She came to emergency room and was evaluated and was found to have AF with RVR. It was also felt she had bronchitis with bronchospasm. She was admitted to [facility] floor for ongoing care needs. Initial orders were written by the emergency room physician. I saw her on November 05 and performed a history and physical. She was given a single dose of IV Lanoxin and metoprolol. Her ventricular rate slowed and remained satisfactory throughout remainder of hospital stay. Blood pressure was slightly above desirable range so metoprolol dose will be increased to 100 mg twice a day. Eliquis was started for CVA prophylaxis and aspirin was discontinued. Echocardiogram showed LVEF of 50%. There was indeterminate diastolic function assessment due to atrial fibrillation. There was mild to moderate mitral regurgitation, [id number] aortic regurgitation, and mild tricuspid r egurgitation. Estimated RVSP was 25 mmHg. The interventricular septum and posterior wall thickness measurements were 1.30 cm each. BN peptide was elevated at 603 on admission. She was started on Bumex. Her dyspnea was essentially resolved by day of discharge. She will continue Bumex at discharge. Supplemental potassium will be given to avoid hypokalemia. B12 level returned low at 153. She was given a B12 injection and started on oral B12 supplement. Her PCP can monitor labs. WBC was slightly elevated at 13.0 day of discharge. There was no left shift on differential however. Pro-calcitonin level and admission was < 0.02. She remained afebrile. Her PCP can follow up as needed. TSH returned normal at 0.494. On November 07 she felt significantly improved and wished to be discharged home. She will follow with her PCP Dr. Macias within 1 week. - Time Spent with Patient Total time spent providing and/or coordinating discharge services: - Discharge Medications Prescriptions: New Bumetanide [Bumex] 1 mg PO DAILY #30 tablet Apixaban [Eliquis] 5 mg PO BID #60 tablet Metoprolol [Lopressor] 100 mg PO BID #60 tablet Potassium Chloride 10 meq PO DAILY #30 tab.er.prt Cyanocobalamin (B-12) [Vitamin B12] 1,000 mcg PO DAILY #30 tablet Continued Vit C/E/Zn/Coppr/Lutein/Zeaxan [Preservision Areds 2 Softgel] 2 tab PO DAILY Amlodipine Besylate 2.5 mg PO DAILY Gabapentin [Neurontin] 300 mg PO DAILY Olmesartan Medoxomil [Benicar] 40 mg PO DAILY #30 tablet Budesonide/Formoterol 160/4.5 [Symbicort 160/4.5] 2 puff IH BIDR Glimepiride [Amaryl] 1 mg PO DAILY Albuterol Sulfate [Proair Respiclick] 2 puff IH PRN PRN PRN Reason: Shortness Of Breath Metformin HCl [Glucophage] 1,000 mg PO HS Levothyroxine [Synthroid] 100 mcg PO 0630 Multivitamin/Iron/Folic Acid [Centrum Complete Multivit Tab] 1 tab PO DAILY Calcium Carbonate/Vitamin D3 [Calcium 600 + D Tablet] 1 each PO DAILY Atorvastatin Calcium [Lipitor] 20 mg PO DAILY metFORMIN [Glucophage] 500 mg PO DAILY Discontinued Metoprolol Tartrate [Lopressor] 50 mg PO BID Aspirin Enteric Coated [Aspirin EC] 81 mg PO DAILY Home Medications: Atorvastatin Calcium [Lipitor] 20 mg PO DAILY 02/18/15 [History] Calcium Carbonate/Vitamin D3 [Calcium 600 + D Tablet] 1 each PO DAILY 02/18/15 [History] Levothyroxine [Synthroid] 100 mcg PO 0630 02/18/15 [History] Multivitamin/Iron/Folic Acid [Centrum Complete Multivit Tab] 1 tab PO DAILY 02/18/15 [History] Amlodipine Besylate 2.5 mg PO DAILY 02/28/16 [History] Vit C/E/Zn/Coppr/Lutein/Zeaxan [Preservision Areds 2 Softgel] 2 tab PO DAILY 02/28/16 [History] Gabapentin [Neurontin] 300 mg PO DAILY 07/16/17 [History] Olmesartan Medoxomil [Benicar] 40 mg PO DAILY #30 tablet 07/20/17 [Rx] Albuterol Sulfate [Proair Respiclick] 2 puff IH PRN PRN 09/20/17 [History] Budesonide/Formoterol 160/4.5 [Symbicort 160/4.5] 2 puff IH BIDR 09/20/17 [History] Glimepiride [Amaryl] 1 mg PO DAILY 09/20/17 [History] Metformin HCl [Glucophage] 1,000 mg PO HS 09/19/18 [History] metFORMIN [Glucophage] 500 mg PO DAILY 11/05/18 [History] Apixaban [Eliquis] 5 mg PO BID #60 tablet 11/07/18 [Rx] Bumetanide [Bumex] 1 mg PO DAILY #30 tablet 11/07/18 [Rx] Cyanocobalamin (B-12) [Vitamin B12] 1,000 mcg PO DAILY #30 tablet 11/07/18 [Rx] Metoprolol [Lopressor] 100 mg PO BID #60 tablet 11/07/18 [Rx] Potassium Chloride 10 meq PO DAILY #30 tab.er.prt 11/07/18 [Rx] Allergies/Adverse Reactions: Allergy/AdvReac Type Severity Reaction Status Date / Time codeine AdvReac Nausea Verified 11/05/18 03:38 Iodinated Contrast- Oral and AdvReac Hives Verified 11/05/18 03:38 IV Dye [Iodinated Contrast Media - IV Dye] Date of admission: 11/05/18 11:01 Primary care physician: Suman Macias MD Consults: 11/05/18 04:55 Consult to Pastoral Services [CONS] Routine Comment: - Constitutional Vitals: Temp Pulse Resp BP Pulse Ox 97.8 F 99 17 144/101 95 11/07/18 07:11 11/07/18 07:11 11/07/18 07:11 11/07/18 07:11 11/07/18 07:11 - Patient Status Disposition: Home, Self-Care Condition: Fair - Discharge Instructions Follow Up With: Suman Macias MD [Primary Care Provider] - 1 week Forms: ED Satisfaction Letter - Diet and Activity Activity: resume usual activities as tolerated Diet: low salt diet
== END 2018-11-07 11:45 | disposition home or self-care (01) | DRG 310 ==
LOC: EMEROOPIK 02:27 → INPPIK 02:27
PROVIDERS: ADMIT Internal Medicine; ATTEND Internal Medicine

== ENCOUNTER 2019-10-26 02:09 | Inpatient (IN) ==
[2019-10-26 02:59] LABS: Basophils % 0.1 %; Hematocrit 34.5 % (35.3-44.9); Hemoglobin 11.9 g/dL (11.5-15.4); Immature Granulocytes % 0.4 % (0-4); Lymphocytes # 1.3 K/mcL (0.6-4.6); Lymphocytes % 10.9 %; Mean Corpuscular HGB Conc 34.5 g/dL (31.6-35.5); Mean Corpuscular Hemoglobin 32.5 pg (28.0-33.3); Mean Corpuscular Volume 94.3 fL (83.0-100.0); Mean Platelet Volume 10.5 fL (9.4-12.4); Monocytes # 0.7 K/mcL (0.0-1.3); Monocytes % 6.1 %; Neutrophils # 9.7 K/mcL (1.6-8.9); Platelet Count 208 K/mcL (140-400); Red Blood Count 3.66 M/mcL (3.82-4.97); Red Cell Distribution Width 13.4 % (11.5-14.5); Segmented Neutrophils % 82.5 %; White Blood Count 11.8 K/mcL (4.3-11.1)
[2019-10-26 03:07] LABS: INR 1.3; Prothrombin Time 14.2 Seconds (9.4-12.1)
[2019-10-26 03:18] LABS: BUN/Creatinine Ratio 24 (6-26); Blood Urea Nitrogen 26 mg/dL (8-23); Calcium 8.9 mg/dL (8.6-10.3); Carbon Dioxide 25 mEq/L (23-29); Chloride 96 mEq/L (98-107); Glucose 205 mg/dL (70-105); Osmolality,Calculated 283 (280-300); Potassium 4.9 mEq/L (3.5-5.1); Sodium 131 mEq/L (136-145); Troponin I < 0.03 ng/mL (< 0.04); eGFR For African Americans 58 (> 60); eGFR For Non-African Americans 48 (> 60)
[2019-10-26] MEDS ORDERED: Furosemide 40 MG/4 ML VIAL IVP ONE (03:58)
[2019-10-26] MEDS ORDERED: Dextrose Gel 15 GM/37.5 ML TUBE PO PRN ×4 (04:25→04:57)
[2019-10-26] MEDS ORDERED: *HR* Dextrose 50 % in Water (Vial) 50 ML VIAL IVP PRN ×2 (04:25→04:57)
[2019-10-26] MEDS ORDERED: D5% in Water 1,000 ML IVC PRN ×2 (04:25→04:57)
[2019-10-26] MEDS ORDERED: Ondansetron 4 MG/2 ML VIAL IVP ONE ×2 (04:29→04:57)
[2019-10-26] MEDS ORDERED: Levalbuterol 1 PUFF INHALER IH PRN (05:55)
[2019-10-26] MEDS ORDERED: Insulin LISPRO 300 UNITS/3 ML VIAL SQ SCH ×2 (07:30→21:00)
[2019-10-26] MEDS ORDERED: Levalbuterol Neb 1.25 MG/3 ML IH PRN (07:53)
[2019-10-26] MEDS ORDERED: *HR* Metformin 500 MG TABLET PO SCH ×2 (08:00→21:00)
[2019-10-26 08:43] LABS: VBG Ionized Calcium 1.05 mmol/L (1.15-1.35)
[2019-10-26] MEDS ORDERED: *HR* Metoprolol 5 MG/5 ML VIAL IVP ONE (08:49)
[2019-10-26] MEDS: Multivit/Ca/Min/Fe/FA 1 TAB TABLET PO SCH (08:54)
[2019-10-26] MEDS: Apixaban 5 MG TABLET PO SCH ×2 (08:55→20:28)
[2019-10-26] MEDS: Cyanocobalamin (B-12) 1,000 MCG TABLET PO SCH (08:55)
[2019-10-26] MEDS: Insulin LISPRO 300 UNITS/3 ML VIAL SQ SCH ×4 (08:56→20:28)
[2019-10-26] MEDS ORDERED: *HR* Glimepiride 2 MG TABLET PO SCH (09:00)
[2019-10-26] MEDS: Furosemide 20 MG/2 ML VIAL IVP SCH ×2 (09:04→18:01)
[2019-10-26] MEDS: MethylPREDNISolone 40 MG/ML VIAL IVP SCH ×2 (09:08→18:01)
[2019-10-26] MEDS: amLODIPine 5 MG TABLET PO SCH (09:10)
[2019-10-26 09:48] LABS: Triiodothyronine (T3) Free 2.93 pg/mL (2.50-3.90)
[2019-10-26] MEDS: Gabapentin 300 MG CAPSULE PO SCH (20:27)
[2019-10-27] MEDS: MethylPREDNISolone 40 MG/ML VIAL IVP SCH ×2 (05:42→17:32)
[2019-10-27] MEDS: Cyanocobalamin (B-12) 1,000 MCG TABLET PO SCH (08:32)
[2019-10-27] MEDS: Apixaban 5 MG TABLET PO SCH ×2 (08:32→20:12)
[2019-10-27] MEDS: Multivit/Ca/Min/Fe/FA 1 TAB TABLET PO SCH (08:32)
[2019-10-27] MEDS: Furosemide 20 MG/2 ML VIAL IVP SCH ×2 (08:32→17:32)
[2019-10-27] MEDS: amLODIPine 5 MG TABLET PO SCH (08:32)
[2019-10-27] MEDS: Insulin LISPRO 300 UNITS/3 ML VIAL SQ SCH ×4 (08:33→20:16)
[2019-10-27 10:15] LABS: Hematocrit 29.7 % (35.3-44.9); Hemoglobin 10.5 g/dL (11.5-15.4); Mean Corpuscular HGB Conc 35.4 g/dL (31.6-35.5); Mean Corpuscular Hemoglobin 32.8 pg (28.0-33.3); Mean Corpuscular Volume 92.8 fL (83.0-100.0); Platelet Count 175 K/mcL (140-400); Red Cell Distribution Width 13.2 % (11.5-14.5); White Blood Count 9.8 K/mcL (4.3-11.1)
[2019-10-27 10:34] LABS: Albumin 3.8 g/dL (3.5-5.7); Albumin/Globulin Ratio 1.3 (1.1-2.2); Bilirubin,Total 0.8 mg/dL (0.3-1.0); Calcium 8.8 mg/dL (8.6-10.3); Globulin 2.9 g/dL (2.4-3.5); Potassium 4.3 mEq/L (3.5-5.1); Total Protein 6.7 g/dL (6.4-8.9)
[2019-10-27] MEDS ORDERED: Perflutren Lipid Microsphere 1.3 ML in 0.9 % Sodium Chloride 8.7 ML IVP PRN (13:51)
[2019-10-27] MEDS: Gabapentin 300 MG CAPSULE PO SCH (20:12)
[2019-10-28] MEDS: MethylPREDNISolone 40 MG/ML VIAL IVP SCH (05:49)
[2019-10-28 06:44] VITALS: BP 139/67
[2019-10-28] MEDS: Multivit/Ca/Min/Fe/FA 1 TAB TABLET PO SCH (08:02)
[2019-10-28] MEDS: Apixaban 5 MG TABLET PO SCH (08:02)
[2019-10-28] MEDS: Cyanocobalamin (B-12) 1,000 MCG TABLET PO SCH (08:02)
[2019-10-28] MEDS: Insulin LISPRO 300 UNITS/3 ML VIAL SQ SCH ×2 (08:03→12:24)
[2019-10-28] MEDS: Furosemide 20 MG/2 ML VIAL IVP SCH (08:03)
[2019-10-28 08:47] LABS: Hemoglobin 10.5 g/dL (11.5-15.4); Mean Corpuscular Hemoglobin 32.7 pg (28.0-33.3); Mean Corpuscular Volume 93.5 fL (83.0-100.0); Mean Platelet Volume 10.7 fL (9.4-12.4); Platelet Count 221 K/mcL (140-400); Red Blood Count 3.21 M/mcL (3.82-4.97); Red Cell Distribution Width 13.2 % (11.5-14.5); White Blood Count 11.1 K/mcL (4.3-11.1)
[2019-10-28] MEDS ORDERED: DilTIAZem CD (24hr) 120 MG CAP.ER.24H PO SCH (09:00)
[2019-10-28 09:22] LABS: BUN/Creatinine Ratio 30 (6-26); Blood Urea Nitrogen 32 mg/dL (8-23); Calcium 8.6 mg/dL (8.6-10.3); Carbon Dioxide 28 mEq/L (23-29); Chloride 98 mEq/L (98-107); Glucose 177 mg/dL (70-105); Osmolality,Calculated 293 (280-300); Potassium 4.4 mEq/L (3.5-5.1); Sodium 136 mEq/L (136-145); eGFR For African Americans > 60 (> 60); eGFR For Non-African Americans 50 (> 60)
== END 2019-10-28 13:00 | disposition home or self-care (01) | DRG 291 ==
LOC: EMEROOPIK 02:09 → INPPIK 02:09
PROVIDERS: ADMIT Family Medicine; ATTEND Family Medicine

== ENCOUNTER 2021-02-28 06:14 | Inpatient (IN) ==
[2021-02-28 06:56] LABS: Basophils % 0.3 %; Eosinophils % 0.1 %; Hematocrit 38.3 % (35.3-44.9); Hemoglobin 13.2 g/dL (11.5-15.4); Immature Granulocytes % 0.4 % (0-4); Lymphocytes # 1.9 K/mcL (0.6-4.6); Lymphocytes % 16.5 %; Mean Corpuscular HGB Conc 34.5 g/dL (31.6-35.5); Mean Corpuscular Hemoglobin 30.8 pg (28.0-33.3); Mean Corpuscular Volume 89.3 fL (83.0-100.0); Mean Platelet Volume 10.5 fL (9.4-12.4); Monocytes # 0.9 K/mcL (0.0-1.3); Monocytes % 8.4 %; Neutrophils # 8.3 K/mcL (1.6-8.9); Platelet Count 251 K/mcL (140-400); Red Blood Count 4.29 M/mcL (3.82-4.97); Red Cell Distribution Width 14.6 % (11.5-14.5); Segmented Neutrophils % 74.3 %; White Blood Count 11.2 K/mcL (4.3-11.1)
[2021-02-28 06:58] LABS: INR 1.6; Prothrombin Time 17.9 Seconds (9.4-12.1)
[2021-02-28 07:01] LABS: Activated Partial Thrombo Time 32.7 Seconds (26.0-36.0)
[2021-02-28 07:07] LABS: Troponin I < 0.03 ng/mL (< 0.04)
[2021-02-28 07:08] LABS: Alanine Aminotransferase 15 Units/L (7-52); Albumin 4.1 g/dL (3.5-5.7); Albumin/Globulin Ratio 1.3 (1.1-2.2); Alkaline Phosphatase 72 Units/L (34-104); Aspartate Amino Transferase 17 Units/L (13-39); BUN/Creatinine Ratio 16 (6-26); Blood Urea Nitrogen 11 mg/dL (8-23); Calcium 9.5 mg/dL (8.6-10.3); Carbon Dioxide 25 mEq/L (23-29); Chloride 90 mEq/L (98-107); Globulin 3.1 g/dL (2.4-3.5); Glucose 166 mg/dL (70-105); Magnesium 1.5 mg/dL (1.6-2.6); Osmolality,Calculated 265 (280-300); Phosphorous 3.4 mg/dL (2.7-4.5); Potassium 3.7 mEq/L (3.5-5.1); Sodium 126 mEq/L (136-145); Total Protein 7.2 g/dL (6.4-8.9); eGFR For African Americans > 60 (> 60); eGFR For Non-African Americans > 60 (> 60)
[2021-02-28] MEDS ORDERED: cefTRIAXone 1,000 MG in 0.9 % Sodium Chloride Mini Bag 100 ML IVPB ONE (07:08)
[2021-02-28] MEDS ORDERED: Furosemide 40 MG/4 ML VIAL IVP ONE (07:16)
[2021-02-28] MEDS ORDERED: Acetaminophen 325 MG TABLET PO PRN (08:01)
[2021-02-28] MEDS ORDERED: Naloxone 0.4 MG/ML INJ IVP PRN (08:01)
[2021-02-28] MEDS ORDERED: Ondansetron ODT 4 MG TAB.RAPDIS SL PRN (08:01)
[2021-02-28 08:02] LABS: Bilirubin,Urine Negative (Negative); Blood,Urine Negative (Negative); Clarity,Urine Clear (Clear); Color,Urine Yellow (Yellow); Glucose,Urine (UA) Normal (Normal); Ketones,Urine Negative (Negative); Leukocyte Esterase,Urine Small (Negative); Nitrite,Urine Negative (Negative); PH,Urine 6.5 pH Units (5.0-8.0); Protein,Urine 100 mg/dL (Neg-Trace); Specific Gravity,Urine 1.015 (1.010-1.025); Urobilinogen,Urine Normal (Normal)
[2021-02-28] MEDS ORDERED: Ipratropium/Albuterol Neb 3 ML IH PRN (08:03)
[2021-02-28 08:27] LABS: WBC,Urine 0-3 per hpf (0-3)
[2021-02-28] MEDS ORDERED: *HR* Metformin 500 MG TABLET PO SCH ×2 (09:00→21:00)
[2021-02-28] MEDS ORDERED: Furosemide 20 MG TABLET PO SCH (09:00)
[2021-02-28] MEDS: Cyanocobalamin (B-12) 1,000 MCG TABLET PO SCH (10:15)
[2021-02-28] MEDS: DilTIAZem CD (24hr) 120 MG CAP.ER.24H PO SCH (10:15)
[2021-02-28] MEDS: Metoprolol 100 MG TABLET PO SCH ×2 (10:16→20:57)
[2021-02-28] MEDS: Apixaban 5 MG TABLET PO SCH ×2 (10:16→20:57)
[2021-02-28] MEDS: Multivit/Ca/Min/Fe/FA 1 TAB TABLET PO SCH (10:16)
[2021-02-28] MEDS ORDERED: 0.9 % Sodium Chloride 250 ML ONE (11:24)
[2021-02-28] MEDS ORDERED: 0.9 % Sodium Chloride 250 ML IVC ONE (11:27)
[2021-02-28] MEDS: Budesonide/Formoterol 160/4.5 1 PUFF INH IH SCH ×2 (11:28→22:50)
[2021-02-28] MEDS ORDERED: *HR* Metoprolol 5 MG/5 ML VIAL IVP ONE (11:37)
[2021-02-28] MEDS: *HR* Metoprolol 5 MG/5 ML VIAL IVP ONE ×2 (11:39→11:46)
[2021-02-28] MEDS ORDERED: Dextrose Gel 15 GM/37.5 ML TUBE PO PRN ×2 (14:23)
[2021-02-28] MEDS ORDERED: *HR* Dextrose 50 % in Water (Syg) 50 ML SYRINGE IVP PRN (14:23)
[2021-02-28] MEDS ORDERED: D5% in Water 1,000 ML IVC PRN (14:23)
[2021-02-28] MEDS: Insulin LISPRO 300 UNITS/3 ML VIAL SUBQ SCH ×2 (18:06→21:08)
[2021-02-28 20:12] LABS: Hematocrit 32.9 % (35.3-44.9); Hemoglobin 11.3 g/dL (11.5-15.4); Mean Corpuscular HGB Conc 34.3 g/dL (31.6-35.5); Mean Corpuscular Hemoglobin 30.5 pg (28.0-33.3); Mean Corpuscular Volume 88.7 fL (83.0-100.0); Mean Platelet Volume 10.2 fL (9.4-12.4); Platelet Count 204 K/mcL (140-400); Red Blood Count 3.71 M/mcL (3.82-4.97); Red Cell Distribution Width 14.6 % (11.5-14.5); White Blood Count 4.1 K/mcL (4.3-11.1)
[2021-02-28 20:28] LABS: Calcium 8.7 mg/dL (8.6-10.3); Potassium 3.8 mEq/L (3.5-5.1)
[2021-02-28] MEDS: 0.9 % Sodium Chloride 1,000 ML IVC SCH (20:56)
[2021-02-28] MEDS: Gabapentin 300 MG CAPSULE PO SCH (20:57)
[2021-02-28] MEDS: Sennosides/Docusate Sodium TABLET PO SCH (20:58)
[2021-03-01 03:11] LABS: Hematocrit 30.7 % (35.3-44.9); Hemoglobin 10.8 g/dL (11.5-15.4); Mean Corpuscular HGB Conc 35.2 g/dL (31.6-35.5); Mean Corpuscular Hemoglobin 30.9 pg (28.0-33.3); Mean Platelet Volume 9.9 fL (9.4-12.4); Platelet Count 188 K/mcL (140-400); Red Blood Count 3.49 M/mcL (3.82-4.97); Red Cell Distribution Width 14.5 % (11.5-14.5); White Blood Count 6.1 K/mcL (4.3-11.1)
[2021-03-01 03:29] LABS: BUN/Creatinine Ratio 25 (6-26); Blood Urea Nitrogen 23 mg/dL (8-23); Calcium 8.5 mg/dL (8.6-10.3); Carbon Dioxide 24 mEq/L (23-29); Chloride 92 mEq/L (98-107); Glucose 165 mg/dL (70-105); Osmolality,Calculated 271 (280-300); Potassium 4.3 mEq/L (3.5-5.1); Sodium 127 mEq/L (136-145); eGFR For African Americans > 60 (> 60); eGFR For Non-African Americans 58 (> 60)
[2021-03-01] MEDS: 0.9 % Sodium Chloride 1,000 ML IVC SCH ×3 (07:36→16:10)
[2021-03-01] MEDS: Sennosides/Docusate Sodium TABLET PO SCH ×2 (07:36→19:45)
[2021-03-01] MEDS: Apixaban 5 MG TABLET PO SCH ×2 (07:36→19:45)
[2021-03-01] MEDS: Cyanocobalamin (B-12) 1,000 MCG TABLET PO SCH (07:36)
[2021-03-01] MEDS: DilTIAZem CD (24hr) 120 MG CAP.ER.24H PO SCH (07:36)
[2021-03-01] MEDS: Insulin LISPRO 300 UNITS/3 ML VIAL SUBQ SCH ×4 (07:37→22:00)
[2021-03-01] MEDS: Multivit/Ca/Min/Fe/FA 1 TAB TABLET PO SCH (07:37)
[2021-03-01] MEDS: Metoprolol 100 MG TABLET PO SCH ×2 (07:37→19:45)
[2021-03-01] MEDS: Budesonide/Formoterol 160/4.5 1 PUFF INH IH SCH ×2 (09:52→21:24)
[2021-03-01] MEDS: Gabapentin 300 MG CAPSULE PO SCH (19:45)
[2021-03-02] MEDS: Insulin LISPRO 300 UNITS/3 ML VIAL SUBQ SCH ×4 (08:05→22:25)
[2021-03-02] MEDS: Cyanocobalamin (B-12) 1,000 MCG TABLET PO SCH (08:06)
[2021-03-02] MEDS: DilTIAZem CD (24hr) 120 MG CAP.ER.24H PO SCH (08:06)
[2021-03-02] MEDS: Apixaban 5 MG TABLET PO SCH ×2 (08:06→22:26)
[2021-03-02] MEDS: Multivit/Ca/Min/Fe/FA 1 TAB TABLET PO SCH (08:06)
[2021-03-02] MEDS: Metoprolol 100 MG TABLET PO SCH ×2 (08:06→22:25)
[2021-03-02] MEDS: Sennosides/Docusate Sodium TABLET PO SCH ×2 (08:15→22:25)
[2021-03-02] MEDS: Budesonide/Formoterol 160/4.5 1 PUFF INH IH SCH ×2 (09:28→21:43)
[2021-03-02] MEDS ORDERED: Furosemide 20 MG TABLET PO ONE (15:44)
[2021-03-02] MEDS: Gabapentin 300 MG CAPSULE PO SCH (22:26)
[2021-03-03 04:47] LABS: Basophils % 0.2 %; Eosinophils % 0.1 %; Hematocrit 35.3 % (35.3-44.9); Hemoglobin 11.7 g/dL (11.5-15.4); Immature Granulocytes % 0.4 % (0-4); Lymphocytes # 1.9 K/mcL (0.6-4.6); Lymphocytes % 15.5 %; Mean Corpuscular HGB Conc 33.1 g/dL (31.6-35.5); Mean Corpuscular Hemoglobin 30.8 pg (28.0-33.3); Mean Corpuscular Volume 92.9 fL (83.0-100.0); Mean Platelet Volume 10.3 fL (9.4-12.4); Monocytes # 1.1 K/mcL (0.0-1.3); Monocytes % 8.6 %; Platelet Count 238 K/mcL (140-400); Red Cell Distribution Width 15.7 % (11.5-14.5); Segmented Neutrophils % 75.2 %; White Blood Count 12.3 K/mcL (4.3-11.1)
[2021-03-03 04:57] LABS: Neutrophils # 9.3 K/mcL (1.6-8.9)
[2021-03-03 05:05] LABS: BUN/Creatinine Ratio 18 (6-26); Blood Urea Nitrogen 16 mg/dL (8-23); Calcium 8.6 mg/dL (8.6-10.3); Carbon Dioxide 26 mEq/L (23-29); Chloride 101 mEq/L (98-107); Glucose 131 mg/dL (70-105); Osmolality,Calculated 285 (280-300); Potassium 4.6 mEq/L (3.5-5.1); Sodium 136 mEq/L (136-145); eGFR For African Americans > 60 (> 60); eGFR For Non-African Americans > 60 (> 60)
[2021-03-03] MEDS ORDERED: Furosemide 20 MG/2 ML VIAL IVP ONE ×2 (06:05→17:00)
[2021-03-03] MEDS: Insulin LISPRO 300 UNITS/3 ML VIAL SUBQ SCH ×4 (08:03→20:45)
[2021-03-03] MEDS: Metoprolol 100 MG TABLET PO SCH ×2 (08:16→20:02)
[2021-03-03] MEDS: Cyanocobalamin (B-12) 1,000 MCG TABLET PO SCH (08:16)
[2021-03-03] MEDS: DilTIAZem CD (24hr) 120 MG CAP.ER.24H PO SCH (08:16)
[2021-03-03] MEDS: Multivit/Ca/Min/Fe/FA 1 TAB TABLET PO SCH (08:17)
[2021-03-03] MEDS: Sennosides/Docusate Sodium TABLET PO SCH ×2 (08:17→20:02)
[2021-03-03] MEDS: Apixaban 5 MG TABLET PO SCH ×2 (08:17→20:02)
[2021-03-03] MEDS ORDERED: Levalbuterol Neb 1.25 MG/3 ML IH ONE (11:02)
[2021-03-03] MEDS ORDERED: Levalbuterol Neb 1.25 MG/3 ML ONE (11:09)
[2021-03-03] MEDS: Budesonide/Formoterol 160/4.5 1 PUFF INH IH SCH ×2 (11:12→21:18)
[2021-03-03] MEDS ORDERED: *HR* LORazepam 2 MG/ML VIAL IVP PRN (14:03)
[2021-03-03] MEDS ORDERED: Furosemide 20 MG TABLET PO ONE (14:30)
[2021-03-03] MEDS ORDERED: Levalbuterol Neb 1.25 MG/3 ML IH PRN (16:00)
[2021-03-03] MEDS: Gabapentin 300 MG CAPSULE PO SCH (20:02)
[2021-03-04 06:50] LABS: Basophils % 0.2 %; Eosinophils % 0.3 %; Hematocrit 32.9 % (35.3-44.9); Hemoglobin 10.9 g/dL (11.5-15.4); Immature Granulocytes % 0.3 % (0-4); Lymphocytes # 1.6 K/mcL (0.6-4.6); Mean Corpuscular HGB Conc 33.1 g/dL (31.6-35.5); Mean Corpuscular Hemoglobin 30.3 pg (28.0-33.3); Mean Corpuscular Volume 91.4 fL (83.0-100.0); Mean Platelet Volume 10.4 fL (9.4-12.4); Monocytes # 0.8 K/mcL (0.0-1.3); Monocytes % 8.4 %; Neutrophils # 6.7 K/mcL (1.6-8.9); Platelet Count 218 K/mcL (140-400); Red Cell Distribution Width 15.5 % (11.5-14.5); Segmented Neutrophils % 73.8 %; White Blood Count 9.1 K/mcL (4.3-11.1)
[2021-03-04 07:08] LABS: BUN/Creatinine Ratio 17 (6-26); Blood Urea Nitrogen 13 mg/dL (8-23); Calcium 8.6 mg/dL (8.6-10.3); Carbon Dioxide 25 mEq/L (23-29); Chloride 99 mEq/L (98-107); Glucose 125 mg/dL (70-105); Magnesium 1.9 mg/dL (1.6-2.6); Osmolality,Calculated 280 (280-300); Sodium 134 mEq/L (136-145); eGFR For African Americans > 60 (> 60); eGFR For Non-African Americans > 60 (> 60)
[2021-03-04] MEDS: Insulin LISPRO 300 UNITS/3 ML VIAL SUBQ SCH ×4 (08:22→21:18)
[2021-03-04] MEDS: Metoprolol 100 MG TABLET PO SCH ×2 (08:27→21:17)
[2021-03-04] MEDS: DilTIAZem CD (24hr) 180 MG CAP.ER.24H PO SCH (08:27)
[2021-03-04] MEDS: Apixaban 5 MG TABLET PO SCH ×2 (08:27→21:17)
[2021-03-04] MEDS: Multivit/Ca/Min/Fe/FA 1 TAB TABLET PO SCH (08:28)
[2021-03-04] MEDS: Furosemide 20 MG/2 ML VIAL IVP SCH ×2 (08:28→17:58)
[2021-03-04] MEDS: Sennosides/Docusate Sodium TABLET PO SCH ×2 (08:28→21:17)
[2021-03-04] MEDS: Cyanocobalamin (B-12) 1,000 MCG TABLET PO SCH (08:28)
[2021-03-04] MEDS ORDERED: Furosemide 20 MG TABLET PO SCH (09:00)
[2021-03-04] MEDS ORDERED: Furosemide 20 MG TABLET PO PRN (09:00)
[2021-03-04] MEDS: Budesonide/Formoterol 160/4.5 1 PUFF INH IH SCH ×2 (10:05→21:46)
[2021-03-04] MEDS: Gabapentin 300 MG CAPSULE PO SCH (21:17)
[2021-03-05 07:53] VITALS: BP 134/84; PULSE 83; RESP 18; TEMP 97.7
[2021-03-05] MEDS ORDERED: Furosemide 20 MG TABLET PO SCH (08:00)
[2021-03-05 08:05] LABS: Basophils % 0.3 %; Eosinophils # 0.1 K/mcL (0.0-0.6); Eosinophils % 0.9 %; Hematocrit 33.9 % (35.3-44.9); Hemoglobin 11.2 g/dL (11.5-15.4); Immature Granulocytes % 0.6 % (0-4); Lymphocytes # 1.2 K/mcL (0.6-4.6); Lymphocytes % 13.9 %; Mean Corpuscular Hemoglobin 30.9 pg (28.0-33.3); Mean Corpuscular Volume 93.4 fL (83.0-100.0); Mean Platelet Volume 10.2 fL (9.4-12.4); Monocytes # 0.8 K/mcL (0.0-1.3); Monocytes % 9.6 %; Neutrophils # 6.4 K/mcL (1.6-8.9); Platelet Count 226 K/mcL (140-400); Red Blood Count 3.63 M/mcL (3.82-4.97); Red Cell Distribution Width 15.5 % (11.5-14.5); Segmented Neutrophils % 74.7 %; White Blood Count 8.6 K/mcL (4.3-11.1)
[2021-03-05] MEDS: Insulin LISPRO 300 UNITS/3 ML VIAL SUBQ SCH (08:11)
[2021-03-05] MEDS: Budesonide/Formoterol 160/4.5 1 PUFF INH IH SCH (09:27)
[2021-03-05 09:28] LABS: BUN/Creatinine Ratio 17 (6-26); Blood Urea Nitrogen 13 mg/dL (8-23); Calcium 8.7 mg/dL (8.6-10.3); Carbon Dioxide 22 mEq/L (23-29); Chloride 99 mEq/L (98-107); Glucose 124 mg/dL (70-105); Osmolality,Calculated 282 (280-300); Potassium 3.9 mEq/L (3.5-5.1); Sodium 135 mEq/L (136-145); eGFR For African Americans > 60 (> 60); eGFR For Non-African Americans > 60 (> 60)
[2021-03-05 09:30] VITALS: O2SAT 98
[2021-03-05 10:33] LABS: Magnesium 1.7 mg/dL (1.6-2.6)
[2021-03-05] MEDS: Multivit/Ca/Min/Fe/FA 1 TAB TABLET PO SCH (10:40)
[2021-03-05] MEDS: Cyanocobalamin (B-12) 1,000 MCG TABLET PO SCH (10:40)
[2021-03-05] MEDS: Sennosides/Docusate Sodium TABLET PO SCH (10:40)
[2021-03-05] MEDS: Apixaban 5 MG TABLET PO SCH (10:41)
[2021-03-05] MEDS: DilTIAZem CD (24hr) 180 MG CAP.ER.24H PO SCH (10:41)
[2021-03-05] MEDS: Metoprolol 100 MG TABLET PO SCH (10:41)
[2021-03-06] MEDS ORDERED: Furosemide 20 MG TABLET PO SCH (09:00)
== END 2021-03-05 11:05 | disposition other institution (70) | DRG 291 ==
LOC: INPPIK 06:14 → EMEROOPIK 06:14 → INPPIK 09:36
PROVIDERS: ADMIT Family Medicine; ATTEND Family Medicine

== ENCOUNTER 2021-03-04 17:06 | Inpatient (IN) ==
[2021-03-05] MEDS ORDERED: Naloxone 0.4 MG/ML INJ IVP PRN (10:53)
[2021-03-05] MEDS ORDERED: Ondansetron ODT 4 MG TAB.RAPDIS SL PRN (10:53)
[2021-03-05] MEDS ORDERED: *HR* Dextrose 50 % in Water (Syg) 50 ML SYRINGE IVP PRN (10:58)
[2021-03-05] MEDS ORDERED: Dextrose Gel 15 GM/37.5 ML TUBE PO PRN ×2 (10:58)
[2021-03-05] MEDS ORDERED: D5% in Water 1,000 ML IVC PRN (10:58)
[2021-03-05] MEDS ORDERED: Furosemide 20 MG TABLET PO ONE (16:00)
[2021-03-05] MEDS: Insulin LISPRO 300 UNITS/3 ML VIAL SUBQ SCH ×3 (17:14→21:01)
[2021-03-05] MEDS: *HR* Metformin 500 MG TABLET PO SCH (18:03)
[2021-03-05] MEDS: Gabapentin 300 MG CAPSULE PO SCH (20:58)
[2021-03-05] MEDS: Apixaban 5 MG TABLET PO SCH (20:58)
[2021-03-05] MEDS: Sennosides/Docusate Sodium TABLET PO SCH (21:00)
[2021-03-05] MEDS: Acetaminophen 325 MG TABLET PO PRN (21:06)
[2021-03-05] MEDS: Budesonide/Formoterol 160/4.5 1 PUFF INH IH SCH (21:33)
[2021-03-06 07:31] LABS: Basophils % 0.4 %; Eosinophils # 0.1 K/mcL (0.0-0.6); Eosinophils % 1.4 %; Hematocrit 32.5 % (35.3-44.9); Hemoglobin 10.7 g/dL (11.5-15.4); Immature Granulocytes % 0.7 % (0-4); Lymphocytes # 1.2 K/mcL (0.6-4.6); Mean Corpuscular HGB Conc 32.9 g/dL (31.6-35.5); Mean Corpuscular Hemoglobin 30.9 pg (28.0-33.3); Mean Corpuscular Volume 93.9 fL (83.0-100.0); Mean Platelet Volume 9.5 fL (9.4-12.4); Monocytes # 0.8 K/mcL (0.0-1.3); Monocytes % 10.6 %; Platelet Count 213 K/mcL (140-400); Red Blood Count 3.46 M/mcL (3.82-4.97); Red Cell Distribution Width 15.5 % (11.5-14.5); Segmented Neutrophils % 69.9 %; White Blood Count 7.2 K/mcL (4.3-11.1)
[2021-03-06 07:56] LABS: BUN/Creatinine Ratio 16 (6-26); Blood Urea Nitrogen 13 mg/dL (8-23); Calcium 8.9 mg/dL (8.6-10.3); Carbon Dioxide 29 mEq/L (23-29); Chloride 100 mEq/L (98-107); Glucose 103 mg/dL (70-105); Osmolality,Calculated 284 (280-300); Potassium 4.2 mEq/L (3.5-5.1); Sodium 137 mEq/L (136-145); eGFR For African Americans > 60 (> 60); eGFR For Non-African Americans > 60 (> 60)
[2021-03-06] MEDS: Budesonide/Formoterol 160/4.5 1 PUFF INH IH SCH ×2 (09:29→21:27)
[2021-03-06] MEDS: Insulin LISPRO 300 UNITS/3 ML VIAL SUBQ SCH ×4 (10:30→20:35)
[2021-03-06] MEDS: [UNRECOGNIZED DRUG - OTHER] PO SCH (10:31)
[2021-03-06] MEDS: Furosemide 20 MG TABLET PO SCH (10:31)
[2021-03-06] MEDS: DilTIAZem CD (24hr) 180 MG CAP.ER.24H PO SCH (10:31)
[2021-03-06] MEDS: Cyanocobalamin (B-12) 1,000 MCG TABLET PO SCH (10:31)
[2021-03-06] MEDS: *HR* Metformin 500 MG TABLET PO SCH ×2 (10:31→18:10)
[2021-03-06] MEDS: Apixaban 5 MG TABLET PO SCH ×2 (10:31→20:33)
[2021-03-06] MEDS: Sennosides/Docusate Sodium TABLET PO SCH ×3 (10:31→20:39)
[2021-03-06] MEDS: Acetaminophen 325 MG TABLET PO PRN (18:10)
[2021-03-06] MEDS: Gabapentin 300 MG CAPSULE PO SCH (20:33)
[2021-03-07] MEDS: Insulin LISPRO 300 UNITS/3 ML VIAL SUBQ SCH ×4 (07:56→20:34)
[2021-03-07] MEDS: Apixaban 5 MG TABLET PO SCH ×2 (08:00→20:33)
[2021-03-07] MEDS: [UNRECOGNIZED DRUG - OTHER] PO SCH (08:00)
[2021-03-07] MEDS: *HR* Metformin 500 MG TABLET PO SCH ×2 (08:00→16:43)
[2021-03-07] MEDS: Furosemide 20 MG TABLET PO SCH (08:00)
[2021-03-07] MEDS: Cyanocobalamin (B-12) 1,000 MCG TABLET PO SCH (08:00)
[2021-03-07] MEDS: DilTIAZem CD (24hr) 180 MG CAP.ER.24H PO SCH (08:00)
[2021-03-07] MEDS: Sennosides/Docusate Sodium TABLET PO SCH ×2 (08:01→20:34)
[2021-03-07] MEDS: Budesonide/Formoterol 160/4.5 1 PUFF INH IH SCH ×2 (09:33→22:06)
[2021-03-07] MEDS: Gabapentin 300 MG CAPSULE PO SCH (20:34)
[2021-03-07] MEDS: Acetaminophen 325 MG TABLET PO PRN (20:36)
[2021-03-08] MEDS: Cyanocobalamin (B-12) 1,000 MCG TABLET PO SCH (07:44)
[2021-03-08] MEDS: Sennosides/Docusate Sodium TABLET PO SCH ×2 (07:44→20:05)
[2021-03-08] MEDS: Apixaban 5 MG TABLET PO SCH ×2 (07:44→20:04)
[2021-03-08] MEDS: *HR* Metformin 500 MG TABLET PO SCH ×2 (07:44→16:18)
[2021-03-08] MEDS: Furosemide 20 MG TABLET PO SCH (07:44)
[2021-03-08] MEDS: DilTIAZem CD (24hr) 180 MG CAP.ER.24H PO SCH (07:45)
[2021-03-08] MEDS: Insulin LISPRO 300 UNITS/3 ML VIAL SUBQ SCH ×4 (07:45→20:33)
[2021-03-08] MEDS: [UNRECOGNIZED DRUG - OTHER] PO SCH (07:45)
[2021-03-08] MEDS: Budesonide/Formoterol 160/4.5 1 PUFF INH IH SCH ×2 (10:25→22:27)
[2021-03-08] MEDS: Acetaminophen 325 MG TABLET PO PRN ×2 (16:20→22:29)
[2021-03-08] MEDS: Gabapentin 300 MG CAPSULE PO SCH (20:33)
[2021-03-09] MEDS: Insulin LISPRO 300 UNITS/3 ML VIAL SUBQ SCH ×4 (07:27→23:03)
[2021-03-09] MEDS: Apixaban 5 MG TABLET PO SCH ×2 (08:49→20:56)
[2021-03-09] MEDS: Sennosides/Docusate Sodium TABLET PO SCH ×2 (08:50→23:04)
[2021-03-09] MEDS: [UNRECOGNIZED DRUG - OTHER] PO SCH (08:50)
[2021-03-09] MEDS: DilTIAZem CD (24hr) 180 MG CAP.ER.24H PO SCH (08:50)
[2021-03-09] MEDS: Furosemide 20 MG TABLET PO SCH (08:50)
[2021-03-09] MEDS: Cyanocobalamin (B-12) 1,000 MCG TABLET PO SCH (08:50)
[2021-03-09] MEDS: *HR* Metformin 500 MG TABLET PO SCH ×2 (08:50→16:49)
[2021-03-09] MEDS: Acetaminophen 325 MG TABLET PO PRN ×2 (08:57→20:56)
[2021-03-09] MEDS: Budesonide/Formoterol 160/4.5 1 PUFF INH IH SCH ×2 (10:15→21:46)
[2021-03-09] MEDS: Gabapentin 300 MG CAPSULE PO SCH (20:57)
[2021-03-10] MEDS: Insulin LISPRO 300 UNITS/3 ML VIAL SUBQ SCH ×4 (07:31→19:49)
[2021-03-10] MEDS: DilTIAZem CD (24hr) 180 MG CAP.ER.24H PO SCH (08:52)
[2021-03-10] MEDS: *HR* Metformin 500 MG TABLET PO SCH ×2 (08:52→16:16)
[2021-03-10] MEDS: Sennosides/Docusate Sodium TABLET PO SCH ×2 (08:52→19:57)
[2021-03-10] MEDS: Apixaban 5 MG TABLET PO SCH ×2 (08:52→19:58)
[2021-03-10] MEDS: Furosemide 20 MG TABLET PO SCH (08:52)
[2021-03-10] MEDS: Cyanocobalamin (B-12) 1,000 MCG TABLET PO SCH (08:52)
[2021-03-10] MEDS: [UNRECOGNIZED DRUG - OTHER] PO SCH (08:53)
[2021-03-10] MEDS: Budesonide/Formoterol 160/4.5 1 PUFF INH IH SCH ×2 (09:26→21:01)
[2021-03-10] MEDS: Acetaminophen 325 MG TABLET PO PRN (19:56)
[2021-03-10] MEDS: Gabapentin 300 MG CAPSULE PO SCH (19:58)
[2021-03-11] MEDS: Insulin LISPRO 300 UNITS/3 ML VIAL SUBQ SCH ×4 (07:46→21:06)
[2021-03-11] MEDS: Sennosides/Docusate Sodium TABLET PO SCH ×2 (07:47→21:08)
[2021-03-11] MEDS: DilTIAZem CD (24hr) 180 MG CAP.ER.24H PO SCH (07:47)
[2021-03-11] MEDS: Apixaban 5 MG TABLET PO SCH ×2 (07:47→21:07)
[2021-03-11] MEDS: Cyanocobalamin (B-12) 1,000 MCG TABLET PO SCH (07:47)
[2021-03-11] MEDS: *HR* Metformin 500 MG TABLET PO SCH ×2 (07:47→17:18)
[2021-03-11] MEDS: Furosemide 20 MG TABLET PO SCH (07:47)
[2021-03-11] MEDS: [UNRECOGNIZED DRUG - OTHER] PO SCH (07:48)
[2021-03-11] MEDS: Budesonide/Formoterol 160/4.5 1 PUFF INH IH SCH ×2 (09:41→21:39)
[2021-03-11] MEDS: Acetaminophen 325 MG TABLET PO PRN (20:53)
[2021-03-11] MEDS: Gabapentin 300 MG CAPSULE PO SCH (21:08)
[2021-03-12] MEDS: Insulin LISPRO 300 UNITS/3 ML VIAL SUBQ SCH ×4 (08:09→21:12)
[2021-03-12] MEDS: Cyanocobalamin (B-12) 1,000 MCG TABLET PO SCH (08:15)
[2021-03-12] MEDS: Furosemide 20 MG TABLET PO SCH (08:16)
[2021-03-12] MEDS: DilTIAZem CD (24hr) 180 MG CAP.ER.24H PO SCH (08:16)
[2021-03-12] MEDS: *HR* Metformin 500 MG TABLET PO SCH ×2 (08:16→16:48)
[2021-03-12] MEDS: Apixaban 5 MG TABLET PO SCH ×2 (08:17→19:30)
[2021-03-12] MEDS: Sennosides/Docusate Sodium TABLET PO SCH ×2 (08:17→19:30)
[2021-03-12] MEDS: [UNRECOGNIZED DRUG - OTHER] PO SCH (08:18)
[2021-03-12] MEDS: Budesonide/Formoterol 160/4.5 1 PUFF INH IH SCH ×2 (10:55→19:56)
[2021-03-12] MEDS ORDERED: Ipratropium/Albuterol Neb 3 ML IH PRN (16:28)
[2021-03-12] MEDS: Gabapentin 300 MG CAPSULE PO SCH (19:30)
[2021-03-12] MEDS: Benzonatate 100 MG CAPSULE PO PRN (19:30)
[2021-03-12] MEDS: Acetaminophen 325 MG TABLET PO PRN (19:31)
[2021-03-12] MEDS: Levalbuterol Neb 1.25 MG/3 ML IH PRN (19:55)
[2021-03-13] MEDS: Benzonatate 100 MG CAPSULE PO PRN (06:21)
[2021-03-13] MEDS: Insulin LISPRO 300 UNITS/3 ML VIAL SUBQ SCH ×4 (08:13→19:58)
[2021-03-13 08:19] LABS: Basophils % 0.4 %; Hematocrit 34.4 % (35.3-44.9); Hemoglobin 11.2 g/dL (11.5-15.4); Immature Granulocytes % 0.5 % (0-4); Lymphocytes # 2.1 K/mcL (0.6-4.6); Lymphocytes % 19.4 %; Mean Corpuscular HGB Conc 32.6 g/dL (31.6-35.5); Mean Corpuscular Hemoglobin 30.3 pg (28.0-33.3); Mean Platelet Volume 9.8 fL (9.4-12.4); Monocytes # 0.9 K/mcL (0.0-1.3); Neutrophils # 7.6 K/mcL (1.6-8.9); Platelet Count 243 K/mcL (140-400); Red Cell Distribution Width 15.2 % (11.5-14.5); Segmented Neutrophils % 71.7 %; White Blood Count 10.6 K/mcL (4.3-11.1)
[2021-03-13 08:40] LABS: Alanine Aminotransferase 14 Units/L (7-52); Albumin 3.9 g/dL (3.5-5.7); Albumin/Globulin Ratio 1.3 (1.1-2.2); Alkaline Phosphatase 60 Units/L (34-104); Aspartate Amino Transferase 18 Units/L (13-39); BUN/Creatinine Ratio 10 (6-26); Bilirubin,Total 0.6 mg/dL (0.3-1.0); Blood Urea Nitrogen 8 mg/dL (8-23); Calcium 9.1 mg/dL (8.6-10.3); Carbon Dioxide 25 mEq/L (23-29); Chloride 97 mEq/L (98-107); Glucose 117 mg/dL (70-105); Magnesium 1.6 mg/dL (1.6-2.6); Osmolality,Calculated 275 (280-300); Potassium 3.5 mEq/L (3.5-5.1); Sodium 133 mEq/L (136-145); Total Protein 6.9 g/dL (6.4-8.9); eGFR For African Americans > 60 (> 60); eGFR For Non-African Americans > 60 (> 60)
[2021-03-13] MEDS ORDERED: Furosemide 20 MG TABLET PO STA (09:04)
[2021-03-13] MEDS ORDERED: Furosemide 20 MG/2 ML VIAL IVP ONE ×3 (09:47→19:45)
[2021-03-13] MEDS: Levalbuterol Neb 1.25 MG/3 ML IH PRN (09:52)
[2021-03-13] MEDS: Budesonide/Formoterol 160/4.5 1 PUFF INH IH SCH ×2 (09:53→22:19)
[2021-03-13] MEDS ORDERED: *HR* Metoprolol 5 MG/5 ML VIAL IVP ONE (10:05)
[2021-03-13] MEDS: DilTIAZem CD (24hr) 180 MG CAP.ER.24H PO SCH (10:10)
[2021-03-13] MEDS ORDERED: *HR* LORazepam 2 MG/ML VIAL IVP ONE (10:24)
[2021-03-13] MEDS: *HR* LORazepam 2 MG/ML VIAL IVP PRN ×2 (10:31→17:35)
[2021-03-13] MEDS ORDERED: *HR* LORazepam 2 MG/ML VIAL IVP STA (10:57)
[2021-03-13 12:14] LABS: Adenovirus Not Detected (Not Detect); Coronavirus 229E Not Detected (Not Detect)
[2021-03-13 12:15] LABS: Bordetella Pertussis Not Detected (Not Detect); Chlamydophila pneumoniae Not Detected (Not Detect); Coronavirus HKU1 Not Detected (Not Detect); Coronavirus NL63 Not Detected (Not Detect); Coronavirus OC43 Not Detected (Not Detect); Human Metapneumovirus Not Detected (Not Detect); Human Rhinovirus/Enterovirus Not Detected (Not Detect); Influenza A Subtype 2009 H1 Not Detected (Not Detect); Influenza B Not Detected (Not Detect); Mycoplasma pneumoniae Not Detected (Not Detect); Parainfluenza Virus 1 Not Detected (Not Detect); Parainfluenza Virus 2 Not Detected (Not Detect); Parainfluenza Virus 3 Not Detected (Not Detect); Parainfluenza Virus 4 Not Detected (Not Detect); Respiratory Syncytial Virus DETECTED (Not Detect); SARS-CoV-2 Not Detected (Not Detect)
[2021-03-13] MEDS ORDERED: DilTIAZem 50 MG in 0.9 % Sodium Chloride 40 ML IVC SCH ×2 (12:45→12:51)
[2021-03-13] MEDS: *HR* Metformin 500 MG TABLET PO SCH ×2 (12:59→19:36)
[2021-03-13] MEDS: Furosemide 20 MG TABLET PO SCH (12:59)
[2021-03-13] MEDS: Apixaban 5 MG TABLET PO SCH ×2 (12:59→19:58)
[2021-03-13] MEDS: Sennosides/Docusate Sodium TABLET PO SCH ×2 (13:00→20:05)
[2021-03-13] MEDS: Cyanocobalamin (B-12) 1,000 MCG TABLET PO SCH (13:00)
[2021-03-13] MEDS: [UNRECOGNIZED DRUG - OTHER] PO SCH (13:00)
[2021-03-13] MEDS: Gabapentin 300 MG CAPSULE PO SCH (20:05)
[2021-03-13 20:13] LABS: ABG Base Excess -1 mEq/L (-2 to 3); ABG HCO3 23 mEq/L (21-27); ABG Oxygen Saturation 100 % (95-98); ABG PCO2 33 mmHg (35-45); ABG PH 7.45 pH Units (7.32-7.45); ABG PO2 437 mmHg (85-104); ABG TCO2 24 mEq/L (20-26); Blood Gas Pressure Support 8 cm H2O
[2021-03-13 20:20] LABS: Alanine Aminotransferase 20 Units/L (7-52); Albumin 3.8 g/dL (3.5-5.7); Albumin/Globulin Ratio 1.2 (1.1-2.2); Alkaline Phosphatase 67 Units/L (34-104); Aspartate Amino Transferase 35 Units/L (13-39); BUN/Creatinine Ratio 12 (6-26); Bilirubin,Total 0.6 mg/dL (0.3-1.0); Blood Urea Nitrogen 13 mg/dL (8-23); Calcium 8.9 mg/dL (8.6-10.3); Carbon Dioxide 25 mEq/L (23-29); Chloride 95 mEq/L (98-107); Globulin 3.2 g/dL (2.4-3.5); Glucose 138 mg/dL (70-105); Osmolality,Calculated 274 (280-300); Potassium 4.3 mEq/L (3.5-5.1); Sodium 131 mEq/L (136-145); eGFR For African Americans > 60 (> 60); eGFR For Non-African Americans 50 (> 60)
[2021-03-13 20:28] LABS: Troponin I 0.53 ng/mL (< 0.04)
[2021-03-13 23:09] VITALS: BP 116/64; PULSE 71; RESP 34; TEMP 101.4; O2SAT 99
[2021-03-13] MEDS: Acetaminophen 325 MG TABLET PO PRN (23:16)
== END 2021-03-13 23:45 | disposition designated cancer center or children's hospital (05) | DRG 308 ==
LOC: INPPIK 03-05 11:20
PROVIDERS: ADMIT Internal Medicine; ATTEND Internal Medicine

== ENCOUNTER 2021-03-22 15:55 | Inpatient (IN) ==
[2021-03-23] MEDS ORDERED: Levalbuterol Neb 1.25 MG/3 ML IH PRN (12:19)
[2021-03-23] MEDS ORDERED: Ondansetron ODT 4 MG TAB.RAPDIS SL PRN (12:19)
[2021-03-23] MEDS ORDERED: *HR* Dextrose 50 % in Water (Syg) 50 ML SYRINGE IVP PRN ×2 (12:23→16:25)
[2021-03-23] MEDS ORDERED: Dextrose Gel 15 GM/37.5 ML TUBE PO PRN ×4 (12:23→16:25)
[2021-03-23] MEDS ORDERED: D5% in Water 1,000 ML IVC PRN ×2 (12:23→16:25)
[2021-03-23] MEDS ORDERED: Insulin LISPRO 300 UNITS/3 ML VIAL SUBQ SCH (16:30)
[2021-03-23] MEDS ORDERED: *HR* Metformin 500 MG TABLET PO SCH (18:00)
[2021-03-23] MEDS: Furosemide 20 MG TABLET PO SCH (18:06)
[2021-03-23] MEDS: *HR* Amiodarone 200 MG TABLET PO SCH (20:24)
[2021-03-23] MEDS: Gabapentin 300 MG CAPSULE PO SCH (20:24)
[2021-03-23] MEDS: Sennosides/Docusate Sodium TABLET PO SCH (20:24)
[2021-03-23] MEDS: Apixaban 2.5 MG TABLET PO SCH (20:25)
[2021-03-23] MEDS: Metoprolol XL (24 HR) Succ 50 MG TAB.ER.24H PO SCH (20:25)
[2021-03-23] MEDS ORDERED: OLMESARTAN MEDOXOMIL 20 MG PO SCH (21:00)
[2021-03-23] MEDS ORDERED: NON-FORMULARY MEDICATION 1 EACH EACH (Ibuprofen/Diphenhydramine Cit [Advil Pm Caplet] 1 EA PO SCH (21:00)
[2021-03-23] MEDS: Budesonide/Formoterol 160/4.5 1 PUFF INH IH SCH (22:15)
[2021-03-23] MEDS: Insulin LISPRO 300 UNITS/3 ML VIAL SUBQ SCH (22:43)
[2021-03-23] MEDS: Benzonatate 100 MG CAPSULE PO PRN (23:27)
[2021-03-24 07:03] LABS: Basophils % 0.5 %; Eosinophils % 0.4 %; Hematocrit 32.5 % (35.3-44.9); Hemoglobin 10.3 g/dL (11.5-15.4); Immature Granulocytes % 1.4 % (0-4); Lymphocytes # 1.6 K/mcL (0.6-4.6); Lymphocytes % 19.4 %; Mean Corpuscular HGB Conc 31.7 g/dL (31.6-35.5); Mean Corpuscular Hemoglobin 29.8 pg (28.0-33.3); Mean Corpuscular Volume 93.9 fL (83.0-100.0); Mean Platelet Volume 9.9 fL (9.4-12.4); Monocytes # 0.8 K/mcL (0.0-1.3); Monocytes % 9.8 %; Neutrophils # 5.8 K/mcL (1.6-8.9); Platelet Count 357 K/mcL (140-400); Red Blood Count 3.46 M/mcL (3.82-4.97); Red Cell Distribution Width 14.8 % (11.5-14.5); Segmented Neutrophils % 68.5 %; White Blood Count 8.5 K/mcL (4.3-11.1)
[2021-03-24 07:09] LABS: INR 1.5; Prothrombin Time 16.8 Seconds (9.4-12.1)
[2021-03-24 07:25] LABS: Potassium 4.1 mEq/L (3.5-5.1)
[2021-03-24] MEDS: Insulin LISPRO 300 UNITS/3 ML VIAL SUBQ SCH ×4 (07:46→21:07)
[2021-03-24] MEDS: Sennosides/Docusate Sodium TABLET PO SCH ×2 (08:55→21:04)
[2021-03-24] MEDS: *HR* Amiodarone 200 MG TABLET PO SCH ×2 (08:55→21:06)
[2021-03-24] MEDS: Spironolactone 25 MG TABLET PO SCH (08:55)
[2021-03-24] MEDS: *HR* Metformin 500 MG TABLET PO SCH (08:55)
[2021-03-24] MEDS: Isosorbide MONOnitrate (24 HR) 30 MG TAB.ER.24H PO SCH (08:55)
[2021-03-24] MEDS: Aspirin Enteric Coated 81 MG Tablet PO SCH (08:55)
[2021-03-24] MEDS: Cyanocobalamin (B-12) 1,000 MCG TABLET PO SCH (08:55)
[2021-03-24] MEDS: Furosemide 20 MG TABLET PO SCH ×2 (08:55→16:46)
[2021-03-24] MEDS: (Vit C/E/Zn/Coppr/Lutein/Zeaxan [Preservision Areds 2 Softgel]) PO SCH (08:56)
[2021-03-24] MEDS: Metoprolol XL (24 HR) Succ 50 MG TAB.ER.24H PO SCH ×2 (08:56→21:05)
[2021-03-24] MEDS: Apixaban 2.5 MG TABLET PO SCH ×2 (09:04→21:06)
[2021-03-24] MEDS: Budesonide/Formoterol 160/4.5 1 PUFF INH IH SCH ×2 (09:53→21:53)
[2021-03-24] MEDS: Acetaminophen 325 MG TABLET PO PRN (15:09)
[2021-03-24] MEDS: Gabapentin 300 MG CAPSULE PO SCH (21:06)
[2021-03-24] MEDS: Benzonatate 100 MG CAPSULE PO PRN (21:06)
[2021-03-25] MEDS: Insulin LISPRO 300 UNITS/3 ML VIAL SUBQ SCH ×4 (08:00→21:32)
[2021-03-25] MEDS: Sennosides/Docusate Sodium TABLET PO SCH ×2 (08:03→21:30)
[2021-03-25] MEDS: Apixaban 2.5 MG TABLET PO SCH ×2 (08:04→21:30)
[2021-03-25] MEDS: Cyanocobalamin (B-12) 1,000 MCG TABLET PO SCH (08:04)
[2021-03-25] MEDS: Isosorbide MONOnitrate (24 HR) 30 MG TAB.ER.24H PO SCH (08:05)
[2021-03-25] MEDS: Aspirin Enteric Coated 81 MG Tablet PO SCH (08:05)
[2021-03-25] MEDS: *HR* Metformin 500 MG TABLET PO SCH (08:06)
[2021-03-25] MEDS: Furosemide 20 MG TABLET PO SCH ×2 (08:06→16:24)
[2021-03-25] MEDS: Spironolactone 25 MG TABLET PO SCH (08:06)
[2021-03-25] MEDS: *HR* Amiodarone 200 MG TABLET PO SCH ×2 (08:06→21:29)
[2021-03-25] MEDS: Metoprolol XL (24 HR) Succ 50 MG TAB.ER.24H PO SCH ×2 (08:07→21:30)
[2021-03-25] MEDS: (Vit C/E/Zn/Coppr/Lutein/Zeaxan [Preservision Areds 2 Softgel]) PO SCH (08:08)
[2021-03-25] MEDS: Budesonide/Formoterol 160/4.5 1 PUFF INH IH SCH ×2 (09:55→22:13)
[2021-03-25] MEDS: Artificial Tears SOLN 15 ML BOTTLE BOTH EYES SCH ×4 (12:33→21:36)
[2021-03-25] MEDS: Benzonatate 100 MG CAPSULE PO PRN (16:24)
[2021-03-25] MEDS: Gabapentin 300 MG CAPSULE PO SCH (21:29)
[2021-03-25] MEDS: Acetaminophen 325 MG TABLET PO PRN (21:29)
[2021-03-26] MEDS: Insulin LISPRO 300 UNITS/3 ML VIAL SUBQ SCH ×4 (07:30→19:30)
[2021-03-26] MEDS: Aspirin Enteric Coated 81 MG Tablet PO SCH (07:45)
[2021-03-26] MEDS: Metoprolol XL (24 HR) Succ 50 MG TAB.ER.24H PO SCH ×2 (07:46→19:28)
[2021-03-26] MEDS: Spironolactone 25 MG TABLET PO SCH (07:46)
[2021-03-26] MEDS: Apixaban 2.5 MG TABLET PO SCH ×2 (07:46→19:29)
[2021-03-26] MEDS: Isosorbide MONOnitrate (24 HR) 30 MG TAB.ER.24H PO SCH (07:46)
[2021-03-26] MEDS: *HR* Amiodarone 200 MG TABLET PO SCH ×2 (07:46→19:28)
[2021-03-26] MEDS: Cyanocobalamin (B-12) 1,000 MCG TABLET PO SCH (07:46)
[2021-03-26] MEDS: Sennosides/Docusate Sodium TABLET PO SCH ×2 (07:46→19:30)
[2021-03-26] MEDS: *HR* Metformin 500 MG TABLET PO SCH (07:47)
[2021-03-26] MEDS: Artificial Tears SOLN 15 ML BOTTLE BOTH EYES SCH ×4 (07:47→19:29)
[2021-03-26] MEDS: Furosemide 20 MG TABLET PO SCH ×2 (07:47→16:31)
[2021-03-26] MEDS: (Vit C/E/Zn/Coppr/Lutein/Zeaxan [Preservision Areds 2 Softgel]) PO SCH (07:48)
[2021-03-26] MEDS: Budesonide/Formoterol 160/4.5 1 PUFF INH IH SCH ×2 (09:31→22:42)
[2021-03-26] MEDS: Acetaminophen 325 MG TABLET PO PRN (18:49)
[2021-03-26] MEDS: Gabapentin 300 MG CAPSULE PO SCH (19:28)
[2021-03-27] MEDS: Insulin LISPRO 300 UNITS/3 ML VIAL SUBQ SCH ×4 (07:14→20:23)
[2021-03-27] MEDS: Metoprolol XL (24 HR) Succ 50 MG TAB.ER.24H PO SCH ×2 (08:16→20:21)
[2021-03-27] MEDS: Aspirin Enteric Coated 81 MG Tablet PO SCH (08:16)
[2021-03-27] MEDS: Artificial Tears SOLN 15 ML BOTTLE BOTH EYES SCH ×4 (08:16→20:22)
[2021-03-27] MEDS: *HR* Metformin 500 MG TABLET PO SCH (08:17)
[2021-03-27] MEDS: Sennosides/Docusate Sodium TABLET PO SCH ×2 (08:17→20:23)
[2021-03-27] MEDS: Isosorbide MONOnitrate (24 HR) 30 MG TAB.ER.24H PO SCH (08:17)
[2021-03-27] MEDS: Apixaban 2.5 MG TABLET PO SCH ×2 (08:17→20:22)
[2021-03-27] MEDS: *HR* Amiodarone 200 MG TABLET PO SCH ×2 (08:17→20:22)
[2021-03-27] MEDS: Spironolactone 25 MG TABLET PO SCH (08:17)
[2021-03-27] MEDS: (Vit C/E/Zn/Coppr/Lutein/Zeaxan [Preservision Areds 2 Softgel]) PO SCH (08:18)
[2021-03-27] MEDS: Cyanocobalamin (B-12) 1,000 MCG TABLET PO SCH (08:18)
[2021-03-27] MEDS: Furosemide 20 MG TABLET PO SCH ×2 (08:18→16:46)
[2021-03-27] MEDS: Acetaminophen 325 MG TABLET PO PRN ×2 (08:31→20:22)
[2021-03-27] MEDS: Budesonide/Formoterol 160/4.5 1 PUFF INH IH SCH ×2 (10:49→20:56)
[2021-03-27] MEDS: Gabapentin 300 MG CAPSULE PO SCH (20:21)
[2021-03-28 06:00] LABS: Hematocrit 29.2 % (35.3-44.9); Hemoglobin 9.6 g/dL (11.5-15.4); Mean Corpuscular HGB Conc 32.9 g/dL (31.6-35.5); Mean Corpuscular Hemoglobin 30.3 pg (28.0-33.3); Mean Corpuscular Volume 92.1 fL (83.0-100.0); Mean Platelet Volume 9.6 fL (9.4-12.4); Platelet Count 320 K/mcL (140-400); Red Blood Count 3.17 M/mcL (3.82-4.97); Red Cell Distribution Width 14.5 % (11.5-14.5); White Blood Count 7.4 K/mcL (4.3-11.1)
[2021-03-28 06:15] LABS: Calcium 8.5 mg/dL (8.6-10.3); Magnesium 1.4 mg/dL (1.6-2.6)
[2021-03-28] MEDS: Insulin LISPRO 300 UNITS/3 ML VIAL SUBQ SCH ×4 (07:21→19:26)
[2021-03-28] MEDS: *HR* Amiodarone 200 MG TABLET PO SCH ×2 (08:10→19:26)
[2021-03-28] MEDS: Artificial Tears SOLN 15 ML BOTTLE BOTH EYES SCH ×4 (08:10→19:26)
[2021-03-28] MEDS: Metoprolol XL (24 HR) Succ 50 MG TAB.ER.24H PO SCH ×2 (08:10→19:26)
[2021-03-28] MEDS: *HR* Metformin 500 MG TABLET PO SCH (08:11)
[2021-03-28] MEDS: Apixaban 2.5 MG TABLET PO SCH ×2 (08:11→19:26)
[2021-03-28] MEDS: Sennosides/Docusate Sodium TABLET PO SCH ×2 (08:11→19:26)
[2021-03-28] MEDS: Isosorbide MONOnitrate (24 HR) 30 MG TAB.ER.24H PO SCH (08:11)
[2021-03-28] MEDS: Aspirin Enteric Coated 81 MG Tablet PO SCH (08:11)
[2021-03-28] MEDS: Spironolactone 25 MG TABLET PO SCH (08:11)
[2021-03-28] MEDS: Cyanocobalamin (B-12) 1,000 MCG TABLET PO SCH (08:11)
[2021-03-28] MEDS: Furosemide 20 MG TABLET PO SCH ×2 (08:11→16:43)
[2021-03-28] MEDS: (Vit C/E/Zn/Coppr/Lutein/Zeaxan [Preservision Areds 2 Softgel]) PO SCH (08:11)
[2021-03-28] MEDS: Budesonide/Formoterol 160/4.5 1 PUFF INH IH SCH ×2 (11:29→22:37)
[2021-03-28] MEDS ORDERED: Furosemide 20 MG TABLET PO STA (13:57)
[2021-03-28] MEDS: Gabapentin 300 MG CAPSULE PO SCH (19:25)
[2021-03-29] MEDS: Isosorbide MONOnitrate (24 HR) 30 MG TAB.ER.24H PO SCH (08:35)
[2021-03-29] MEDS: Metoprolol XL (24 HR) Succ 50 MG TAB.ER.24H PO SCH ×2 (08:35→19:32)
[2021-03-29] MEDS: Furosemide 20 MG TABLET PO SCH ×2 (08:37→16:25)
[2021-03-29] MEDS: Sennosides/Docusate Sodium TABLET PO SCH ×2 (08:38→19:32)
[2021-03-29] MEDS: Cyanocobalamin (B-12) 1,000 MCG TABLET PO SCH (08:38)
[2021-03-29] MEDS: *HR* Amiodarone 200 MG TABLET PO SCH ×3 (08:41→19:32)
[2021-03-29] MEDS: Spironolactone 25 MG TABLET PO SCH (08:41)
[2021-03-29] MEDS: *HR* Metformin 500 MG TABLET PO SCH (08:41)
[2021-03-29] MEDS: Aspirin Enteric Coated 81 MG Tablet PO SCH (08:41)
[2021-03-29] MEDS: Artificial Tears SOLN 15 ML BOTTLE BOTH EYES SCH ×4 (08:50→19:33)
[2021-03-29] MEDS: Insulin LISPRO 300 UNITS/3 ML VIAL SUBQ SCH ×4 (08:53→19:33)
[2021-03-29] MEDS: (Vit C/E/Zn/Coppr/Lutein/Zeaxan [Preservision Areds 2 Softgel]) PO SCH (08:54)
[2021-03-29] MEDS: Budesonide/Formoterol 160/4.5 1 PUFF INH IH SCH ×2 (09:19→22:19)
[2021-03-29] MEDS: Apixaban 2.5 MG TABLET PO SCH ×2 (10:17→19:32)
[2021-03-29] MEDS: Benzonatate 100 MG CAPSULE PO PRN ×2 (11:25→21:24)
[2021-03-29] MEDS: Magnesium Oxide 400 MG TABLET PO SCH (15:35)
[2021-03-29] MEDS: Acetaminophen 325 MG TABLET PO PRN ×2 (15:38→21:24)
[2021-03-29] MEDS: Gabapentin 300 MG CAPSULE PO SCH (19:33)
[2021-03-30] MEDS: Furosemide 20 MG TABLET PO SCH ×2 (08:17→16:12)
[2021-03-30] MEDS: Insulin LISPRO 300 UNITS/3 ML VIAL SUBQ SCH ×4 (08:17→21:44)
[2021-03-30] MEDS: *HR* Amiodarone 200 MG TABLET PO SCH ×2 (08:19→21:44)
[2021-03-30] MEDS: Metoprolol XL (24 HR) Succ 50 MG TAB.ER.24H PO SCH ×2 (08:19→21:43)
[2021-03-30] MEDS: Apixaban 2.5 MG TABLET PO SCH ×2 (08:20→21:43)
[2021-03-30] MEDS: Sennosides/Docusate Sodium TABLET PO SCH ×2 (08:22→21:44)
[2021-03-30] MEDS: Isosorbide MONOnitrate (24 HR) 30 MG TAB.ER.24H PO SCH (08:23)
[2021-03-30] MEDS: Cyanocobalamin (B-12) 1,000 MCG TABLET PO SCH (08:23)
[2021-03-30] MEDS: Aspirin Enteric Coated 81 MG Tablet PO SCH (08:23)
[2021-03-30] MEDS: Magnesium Oxide 400 MG TABLET PO SCH (08:24)
[2021-03-30] MEDS: *HR* Metformin 500 MG TABLET PO SCH (08:24)
[2021-03-30] MEDS: Spironolactone 25 MG TABLET PO SCH (08:25)
[2021-03-30] MEDS: Artificial Tears SOLN 15 ML BOTTLE BOTH EYES SCH ×4 (08:26→21:56)
[2021-03-30] MEDS: (Vit C/E/Zn/Coppr/Lutein/Zeaxan [Preservision Areds 2 Softgel]) PO SCH (08:30)
[2021-03-30] MEDS: Budesonide/Formoterol 160/4.5 1 PUFF INH IH SCH ×2 (10:11→21:32)
[2021-03-30] MEDS: Acetaminophen 325 MG TABLET PO PRN (18:55)
[2021-03-30] MEDS: Gabapentin 300 MG CAPSULE PO SCH (21:43)
[2021-03-31] MEDS: Acetaminophen 325 MG TABLET PO PRN ×2 (02:09→16:36)
[2021-03-31] MEDS: Aspirin Enteric Coated 81 MG Tablet PO SCH (07:59)
[2021-03-31] MEDS: *HR* Metformin 500 MG TABLET PO SCH (07:59)
[2021-03-31] MEDS: Magnesium Oxide 400 MG TABLET PO SCH (08:00)
[2021-03-31] MEDS: Isosorbide MONOnitrate (24 HR) 30 MG TAB.ER.24H PO SCH (08:00)
[2021-03-31] MEDS: Cyanocobalamin (B-12) 1,000 MCG TABLET PO SCH (08:01)
[2021-03-31] MEDS: *HR* Amiodarone 200 MG TABLET PO SCH ×2 (08:02→20:40)
[2021-03-31] MEDS: Sennosides/Docusate Sodium TABLET PO SCH ×2 (08:03→20:40)
[2021-03-31] MEDS: Apixaban 2.5 MG TABLET PO SCH ×2 (08:04→20:39)
[2021-03-31] MEDS: Furosemide 20 MG TABLET PO SCH ×2 (08:05→16:34)
[2021-03-31] MEDS: Metoprolol XL (24 HR) Succ 50 MG TAB.ER.24H PO SCH ×2 (08:05→20:42)
[2021-03-31] MEDS: Spironolactone 25 MG TABLET PO SCH (08:05)
[2021-03-31] MEDS: Artificial Tears SOLN 15 ML BOTTLE BOTH EYES SCH ×4 (08:08→20:40)
[2021-03-31] MEDS: Insulin LISPRO 300 UNITS/3 ML VIAL SUBQ SCH ×4 (08:08→20:46)
[2021-03-31] MEDS: (Vit C/E/Zn/Coppr/Lutein/Zeaxan [Preservision Areds 2 Softgel]) PO SCH (08:09)
[2021-03-31 08:59] LABS: Basophils # 0.1 K/mcL (0.0-0.2); Basophils % 1.8 %; Eosinophils # 0.1 K/mcL (0.0-0.6); Eosinophils % 1.4 %; Hematocrit 32.8 % (35.3-44.9); Hemoglobin 10.5 g/dL (11.5-15.4); Immature Granulocytes % 0.5 % (0-4); Lymphocytes # 1.6 K/mcL (0.6-4.6); Lymphocytes % 28.3 %; Mean Corpuscular Hemoglobin 29.7 pg (28.0-33.3); Mean Corpuscular Volume 92.9 fL (83.0-100.0); Mean Platelet Volume 9.7 fL (9.4-12.4); Monocytes # 0.7 K/mcL (0.0-1.3); Monocytes % 12.8 %; Neutrophils # 3.1 K/mcL (1.6-8.9); Platelet Count 350 K/mcL (140-400); Red Blood Count 3.53 M/mcL (3.82-4.97); Red Cell Distribution Width 14.4 % (11.5-14.5); Segmented Neutrophils % 55.2 %; White Blood Count 5.6 K/mcL (4.3-11.1)
[2021-03-31] MEDS: Budesonide/Formoterol 160/4.5 1 PUFF INH IH SCH ×2 (09:21→21:39)
[2021-03-31 09:24] LABS: Calcium 8.9 mg/dL (8.6-10.3); Magnesium 1.7 mg/dL (1.6-2.6); Potassium 4.2 mEq/L (3.5-5.1)
[2021-03-31] MEDS: Gabapentin 300 MG CAPSULE PO SCH (20:40)
[2021-04-01] MEDS: Spironolactone 25 MG TABLET PO SCH (08:07)
[2021-04-01] MEDS: Sennosides/Docusate Sodium TABLET PO SCH ×2 (08:08→19:47)
[2021-04-01] MEDS: Cyanocobalamin (B-12) 1,000 MCG TABLET PO SCH (08:09)
[2021-04-01] MEDS: Magnesium Oxide 400 MG TABLET PO SCH (08:09)
[2021-04-01] MEDS: Aspirin Enteric Coated 81 MG Tablet PO SCH (08:09)
[2021-04-01] MEDS: Furosemide 20 MG TABLET PO SCH ×2 (08:10→17:17)
[2021-04-01] MEDS: Apixaban 2.5 MG TABLET PO SCH ×2 (08:10→19:45)
[2021-04-01] MEDS: Isosorbide MONOnitrate (24 HR) 30 MG TAB.ER.24H PO SCH (08:11)
[2021-04-01] MEDS: *HR* Metformin 500 MG TABLET PO SCH (08:11)
[2021-04-01] MEDS: *HR* Amiodarone 200 MG TABLET PO SCH ×2 (08:11→19:44)
[2021-04-01] MEDS: Metoprolol XL (24 HR) Succ 50 MG TAB.ER.24H PO SCH ×2 (08:12→19:45)
[2021-04-01] MEDS: Insulin LISPRO 300 UNITS/3 ML VIAL SUBQ SCH ×4 (08:12→19:47)
[2021-04-01] MEDS: (Vit C/E/Zn/Coppr/Lutein/Zeaxan [Preservision Areds 2 Softgel]) PO SCH (08:12)
[2021-04-01] MEDS: Artificial Tears SOLN 15 ML BOTTLE BOTH EYES SCH ×4 (08:15→19:47)
[2021-04-01] MEDS: Budesonide/Formoterol 160/4.5 1 PUFF INH IH SCH ×2 (10:43→21:35)
[2021-04-01] MEDS: Acetaminophen 325 MG TABLET PO PRN (19:43)
[2021-04-01] MEDS: Gabapentin 300 MG CAPSULE PO SCH (19:45)
[2021-04-02] MEDS: Insulin LISPRO 300 UNITS/3 ML VIAL SUBQ SCH ×4 (07:40→20:23)
[2021-04-02] MEDS: Metoprolol XL (24 HR) Succ 50 MG TAB.ER.24H PO SCH ×2 (08:34→20:30)
[2021-04-02] MEDS: Sennosides/Docusate Sodium TABLET PO SCH ×2 (08:34→20:30)
[2021-04-02] MEDS: Aspirin Enteric Coated 81 MG Tablet PO SCH (08:35)
[2021-04-02] MEDS: Apixaban 2.5 MG TABLET PO SCH ×2 (08:35→20:31)
[2021-04-02] MEDS: Furosemide 20 MG TABLET PO SCH ×2 (08:35→16:49)
[2021-04-02] MEDS: Cyanocobalamin (B-12) 1,000 MCG TABLET PO SCH (08:36)
[2021-04-02] MEDS: Magnesium Oxide 400 MG TABLET PO SCH (08:36)
[2021-04-02] MEDS: Isosorbide MONOnitrate (24 HR) 30 MG TAB.ER.24H PO SCH (08:36)
[2021-04-02] MEDS: *HR* Metformin 500 MG TABLET PO SCH (08:37)
[2021-04-02] MEDS: *HR* Amiodarone 200 MG TABLET PO SCH ×2 (08:37→20:31)
[2021-04-02] MEDS: Spironolactone 25 MG TABLET PO SCH (08:37)
[2021-04-02] MEDS: (Vit C/E/Zn/Coppr/Lutein/Zeaxan [Preservision Areds 2 Softgel]) PO SCH (08:38)
[2021-04-02] MEDS: Artificial Tears SOLN 15 ML BOTTLE BOTH EYES SCH ×4 (08:38→20:39)
[2021-04-02] MEDS: Budesonide/Formoterol 160/4.5 1 PUFF INH IH SCH ×2 (10:12→21:47)
[2021-04-02] MEDS: Acetaminophen 325 MG TABLET PO PRN (16:46)
[2021-04-02] MEDS: Gabapentin 300 MG CAPSULE PO SCH (20:31)
[2021-04-03] MEDS: Benzonatate 100 MG CAPSULE PO PRN ×2 (06:00→19:36)
[2021-04-03 09:04] LABS: Calcium 8.6 mg/dL (8.6-10.3); Potassium 4.2 mEq/L (3.5-5.1)
[2021-04-03] MEDS: Insulin LISPRO 300 UNITS/3 ML VIAL SUBQ SCH ×4 (10:54→21:35)
[2021-04-03] MEDS: Apixaban 2.5 MG TABLET PO SCH ×2 (11:01→19:25)
[2021-04-03] MEDS: Isosorbide MONOnitrate (24 HR) 30 MG TAB.ER.24H PO SCH (11:01)
[2021-04-03] MEDS: Spironolactone 25 MG TABLET PO SCH (11:05)
[2021-04-03] MEDS: Budesonide/Formoterol 160/4.5 1 PUFF INH IH SCH ×2 (11:07→22:09)
[2021-04-03] MEDS: Aspirin Enteric Coated 81 MG Tablet PO SCH (11:08)
[2021-04-03] MEDS: *HR* Metformin 500 MG TABLET PO SCH (11:08)
[2021-04-03] MEDS: Sennosides/Docusate Sodium TABLET PO SCH ×2 (11:08→19:15)
[2021-04-03] MEDS: Furosemide 20 MG TABLET PO SCH ×2 (11:08→17:11)
[2021-04-03] MEDS: Cyanocobalamin (B-12) 1,000 MCG TABLET PO SCH (11:08)
[2021-04-03] MEDS: Magnesium Oxide 400 MG TABLET PO SCH (11:08)
[2021-04-03] MEDS: Artificial Tears SOLN 15 ML BOTTLE BOTH EYES SCH ×4 (11:09→19:24)
[2021-04-03] MEDS: (Vit C/E/Zn/Coppr/Lutein/Zeaxan [Preservision Areds 2 Softgel]) PO SCH (11:09)
[2021-04-03] MEDS: Metoprolol XL (24 HR) Succ 50 MG TAB.ER.24H PO SCH ×2 (11:24→19:25)
[2021-04-03] MEDS: *HR* Amiodarone 200 MG TABLET PO SCH ×2 (11:25→19:25)
[2021-04-03] MEDS: Gabapentin 300 MG CAPSULE PO SCH (19:25)
[2021-04-03] MEDS: Acetaminophen 325 MG TABLET PO PRN (19:25)
[2021-04-04] MEDS: *HR* Amiodarone 200 MG TABLET PO SCH ×2 (09:03→22:51)
[2021-04-04] MEDS: Spironolactone 25 MG TABLET PO SCH (09:03)
[2021-04-04] MEDS: Metoprolol XL (24 HR) Succ 50 MG TAB.ER.24H PO SCH ×2 (09:04→22:50)
[2021-04-04] MEDS: Magnesium Oxide 400 MG TABLET PO SCH (09:04)
[2021-04-04] MEDS: *HR* Metformin 500 MG TABLET PO SCH (09:04)
[2021-04-04] MEDS: Isosorbide MONOnitrate (24 HR) 30 MG TAB.ER.24H PO SCH (09:04)
[2021-04-04] MEDS: Aspirin Enteric Coated 81 MG Tablet PO SCH (09:05)
[2021-04-04] MEDS: Benzonatate 100 MG CAPSULE PO PRN (09:05)
[2021-04-04] MEDS: Cyanocobalamin (B-12) 1,000 MCG TABLET PO SCH (09:05)
[2021-04-04] MEDS: Artificial Tears SOLN 15 ML BOTTLE BOTH EYES SCH ×4 (09:06→22:49)
[2021-04-04] MEDS: Furosemide 20 MG TABLET PO SCH ×2 (09:06→17:21)
[2021-04-04] MEDS: Insulin LISPRO 300 UNITS/3 ML VIAL SUBQ SCH ×4 (09:06→22:56)
[2021-04-04] MEDS: Sennosides/Docusate Sodium TABLET PO SCH ×2 (09:07→22:50)
[2021-04-04] MEDS: (Vit C/E/Zn/Coppr/Lutein/Zeaxan [Preservision Areds 2 Softgel]) PO SCH (09:07)
[2021-04-04] MEDS: Apixaban 2.5 MG TABLET PO SCH ×2 (09:13→22:51)
[2021-04-04] MEDS: Budesonide/Formoterol 160/4.5 1 PUFF INH IH SCH ×2 (11:08→23:12)
[2021-04-04] MEDS: Gabapentin 100 MG CAPSULE PO SCH (13:56)
[2021-04-04] MEDS: Acetaminophen 325 MG TABLET PO PRN (18:37)
[2021-04-04] MEDS: Gabapentin 300 MG CAPSULE PO SCH (22:50)
[2021-04-05] MEDS: Apixaban 2.5 MG TABLET PO SCH ×2 (09:18→19:41)
[2021-04-05] MEDS: Isosorbide MONOnitrate (24 HR) 30 MG TAB.ER.24H PO SCH (09:18)
[2021-04-05] MEDS: Aspirin Enteric Coated 81 MG Tablet PO SCH (09:18)
[2021-04-05] MEDS: *HR* Amiodarone 200 MG TABLET PO SCH ×2 (09:18→19:41)
[2021-04-05] MEDS: Metoprolol XL (24 HR) Succ 50 MG TAB.ER.24H PO SCH ×2 (09:18→19:41)
[2021-04-05] MEDS: Cyanocobalamin (B-12) 1,000 MCG TABLET PO SCH (09:19)
[2021-04-05] MEDS: Spironolactone 25 MG TABLET PO SCH (09:19)
[2021-04-05] MEDS: Gabapentin 100 MG CAPSULE PO SCH (09:19)
[2021-04-05] MEDS: Magnesium Oxide 400 MG TABLET PO SCH (09:19)
[2021-04-05] MEDS: Insulin LISPRO 300 UNITS/3 ML VIAL SUBQ SCH ×4 (09:19→19:41)
[2021-04-05] MEDS: Sennosides/Docusate Sodium TABLET PO SCH ×2 (09:20→19:40)
[2021-04-05] MEDS: *HR* Metformin 500 MG TABLET PO SCH (09:20)
[2021-04-05] MEDS: Artificial Tears SOLN 15 ML BOTTLE BOTH EYES SCH ×4 (09:21→19:41)
[2021-04-05] MEDS: Furosemide 20 MG TABLET PO SCH ×2 (09:23→16:34)
[2021-04-05] MEDS: (Vit C/E/Zn/Coppr/Lutein/Zeaxan [Preservision Areds 2 Softgel]) PO SCH (10:23)
[2021-04-05] MEDS: Budesonide/Formoterol 160/4.5 1 PUFF INH IH SCH ×2 (11:34→22:02)
[2021-04-05] MEDS: Acetaminophen 325 MG TABLET PO PRN (19:05)
[2021-04-05] MEDS: Gabapentin 300 MG CAPSULE PO SCH (19:41)
[2021-04-05] MEDS: Benzonatate 100 MG CAPSULE PO PRN (19:56)
[2021-04-06] MEDS: Insulin LISPRO 300 UNITS/3 ML VIAL SUBQ SCH ×4 (07:24→20:51)
[2021-04-06] MEDS: Magnesium Oxide 400 MG TABLET PO SCH (07:59)
[2021-04-06] MEDS: Cyanocobalamin (B-12) 1,000 MCG TABLET PO SCH (07:59)
[2021-04-06] MEDS: Spironolactone 25 MG TABLET PO SCH (07:59)
[2021-04-06] MEDS: Aspirin Enteric Coated 81 MG Tablet PO SCH (07:59)
[2021-04-06] MEDS: *HR* Amiodarone 200 MG TABLET PO SCH ×2 (07:59→20:50)
[2021-04-06] MEDS: *HR* Metformin 500 MG TABLET PO SCH (07:59)
[2021-04-06] MEDS: Isosorbide MONOnitrate (24 HR) 30 MG TAB.ER.24H PO SCH (08:00)
[2021-04-06] MEDS: Metoprolol XL (24 HR) Succ 50 MG TAB.ER.24H PO SCH ×2 (08:00→20:50)
[2021-04-06] MEDS: Gabapentin 100 MG CAPSULE PO SCH (08:00)
[2021-04-06] MEDS: Furosemide 20 MG TABLET PO SCH ×2 (08:00→17:03)
[2021-04-06] MEDS: Apixaban 2.5 MG TABLET PO SCH ×2 (08:01→20:50)
[2021-04-06] MEDS: Artificial Tears SOLN 15 ML BOTTLE BOTH EYES SCH ×4 (08:01→20:50)
[2021-04-06] MEDS: Sennosides/Docusate Sodium TABLET PO SCH ×2 (08:01→20:49)
[2021-04-06] MEDS: (Vit C/E/Zn/Coppr/Lutein/Zeaxan [Preservision Areds 2 Softgel]) PO SCH (08:01)
[2021-04-06] MEDS: Budesonide/Formoterol 160/4.5 1 PUFF INH IH SCH ×2 (10:28→21:11)
[2021-04-06] MEDS: Benzonatate 100 MG CAPSULE PO PRN (14:08)
[2021-04-06] MEDS: Gabapentin 300 MG CAPSULE PO SCH (20:50)
[2021-04-06] MEDS: Acetaminophen 325 MG TABLET PO PRN (21:06)
[2021-04-07] MEDS: Sennosides/Docusate Sodium TABLET PO SCH (09:00)
[2021-04-07] MEDS: Metoprolol XL (24 HR) Succ 50 MG TAB.ER.24H PO SCH (09:00)
[2021-04-07] MEDS: *HR* Amiodarone 200 MG TABLET PO SCH (09:00)
[2021-04-07] MEDS: Apixaban 2.5 MG TABLET PO SCH (09:00)
[2021-04-07] MEDS: Artificial Tears SOLN 15 ML BOTTLE BOTH EYES SCH ×2 (09:00→14:14)
[2021-04-07] MEDS: Cyanocobalamin (B-12) 1,000 MCG TABLET PO SCH (09:00)
[2021-04-07] MEDS: Magnesium Oxide 400 MG TABLET PO SCH (09:00)
[2021-04-07] MEDS: Furosemide 20 MG TABLET PO SCH (09:00)
[2021-04-07] MEDS: *HR* Metformin 500 MG TABLET PO SCH (09:00)
[2021-04-07] MEDS: Insulin LISPRO 300 UNITS/3 ML VIAL SUBQ SCH ×2 (09:00→12:31)
[2021-04-07] MEDS: Spironolactone 25 MG TABLET PO SCH (09:00)
[2021-04-07] MEDS: Gabapentin 100 MG CAPSULE PO SCH (09:00)
[2021-04-07] MEDS: Isosorbide MONOnitrate (24 HR) 30 MG TAB.ER.24H PO SCH (09:00)
[2021-04-07] MEDS: Aspirin Enteric Coated 81 MG Tablet PO SCH (09:00)
[2021-04-07 09:24] VITALS: BP 153/56; PULSE 59; TEMP 97.7
[2021-04-07] MEDS: Budesonide/Formoterol 160/4.5 1 PUFF INH IH SCH (10:00)
[2021-04-07 10:02] VITALS: RESP 18; O2SAT 99
[2021-04-07] MEDS: (Vit C/E/Zn/Coppr/Lutein/Zeaxan [Preservision Areds 2 Softgel]) PO SCH (10:25)
== END 2021-04-07 15:06 | disposition home health service (06) | DRG 291 ==
LOC: INPPIK 03-23 13:04
PROVIDERS: ADMIT Internal Medicine; ATTEND Internal Medicine

== ENCOUNTER 2021-10-08 09:58 | Inpatient (IN) ==
[2021-10-08 10:37] LABS: Basophils % 0.4 %; Eosinophils % 0.1 %; Hematocrit 36.6 % (35.3-44.9); Hemoglobin 11.9 g/dL (11.5-15.4); Immature Granulocytes % 0.4 % (0-4); Lymphocytes # 0.8 K/mcL (0.6-4.6); Lymphocytes % 11.7 %; Mean Corpuscular HGB Conc 32.5 g/dL (31.6-35.5); Mean Corpuscular Hemoglobin 27.9 pg (28.0-33.3); Mean Corpuscular Volume 85.7 fL (83.0-100.0); Mean Platelet Volume 9.3 fL (9.4-12.4); Monocytes # 0.4 K/mcL (0.0-1.3); Monocytes % 5.6 %; Neutrophils # 5.7 K/mcL (1.6-8.9); Platelet Count 297 K/mcL (140-400); Red Blood Count 4.27 M/mcL (3.82-4.97); Red Cell Distribution Width 16.1 % (11.5-14.5); Segmented Neutrophils % 81.8 %
[2021-10-08] MEDS ORDERED: Acetaminophen 325 MG TABLET PO ONE (10:41)
[2021-10-08 10:53] LABS: BUN/Creatinine Ratio 11 (6-26); Blood Urea Nitrogen 12 mg/dL (8-23); Calcium 8.8 mg/dL (8.6-10.3); Carbon Dioxide 26 mEq/L (23-29); Chloride 91 mEq/L (98-107); Glucose 105 mg/dL (70-105); Osmolality,Calculated 266 (280-300); Potassium 3.6 mEq/L (3.5-5.1); Sodium 128 mEq/L (136-145); eGFR For African Americans 59 (> 60); eGFR For Non-African Americans 48 (> 60)
[2021-10-08 10:57] LABS: Troponin I < 0.03 ng/mL (< 0.04)
[2021-10-08 10:57] LABS: Bilirubin,Urine Negative (Negative); Blood,Urine Trace-intact (Negative); Clarity,Urine Slightly Cloudy (Clear); Color,Urine Yellow (Yellow); Glucose,Urine (UA) Normal (Normal); Ketones,Urine Negative (Negative); Leukocyte Esterase,Urine Negative (Negative); Nitrite,Urine Negative (Negative); PH,Urine 7.5 pH Units (5.0-8.0); Protein,Urine 30 mg/dL (Neg-Trace); Urobilinogen,Urine Normal (Normal)
[2021-10-08 11:03] LABS: Squamous Epithelial Cell,Urine Few per hpf (None-Few)
[2021-10-08] MEDS ORDERED: Furosemide 40 MG/4 ML VIAL IVP ONE (11:06)
[2021-10-08] MEDS ORDERED: Naloxone 0.4 MG/ML INJ IVP PRN (12:50)
[2021-10-08] MEDS ORDERED: Acetaminophen 325 MG TABLET PO PRN (12:50)
[2021-10-08] MEDS ORDERED: Ondansetron 4 MG/2 ML VIAL IVP PRN (12:50)
[2021-10-08] MEDS ORDERED: Levalbuterol Neb 1.25 MG/3 ML IH PRN (12:59)
[2021-10-08] MEDS ORDERED: Dextrose Gel 15 GM/37.5 ML TUBE PO PRN ×2 (13:28)
[2021-10-08] MEDS ORDERED: *HR* Dextrose 50 % in Water (Syg) 50 ML SYRINGE IVP PRN (13:28)
[2021-10-08] MEDS ORDERED: D5% in Water 1,000 ML IVC PRN (13:28)
[2021-10-08] MEDS: Insulin LISPRO 300 UNITS/3 ML VIAL SUBQ SCH ×2 (16:57→20:14)
[2021-10-08] MEDS: Furosemide 20 MG/2 ML VIAL IVP SCH ×2 (16:57→20:14)
[2021-10-08] MEDS: Metoprolol XL (24 HR) Succ 50 MG TAB.ER.24H PO SCH (20:09)
[2021-10-08] MEDS: Apixaban 2.5 MG TABLET PO SCH (20:12)
[2021-10-08] MEDS: Gabapentin 300 MG CAPSULE PO SCH (20:12)
[2021-10-08] MEDS: Sennosides/Docusate Sodium TABLET PO SCH (20:13)
[2021-10-08] MEDS: Ibuprofen 400 MG TABLET PO SCH (20:13)
[2021-10-08] MEDS: Budesonide/Formoterol 160/4.5 1 PUFF INH IH SCH (20:46)
[2021-10-08] MEDS ORDERED: NON-FORMULARY MEDICATION 1 EACH EACH (Ibuprofen/Diphenhydramine Cit [Advil Pm Caplet] 1 EA PO SCH (21:00)
[2021-10-09] MEDS: Insulin LISPRO 300 UNITS/3 ML VIAL SUBQ SCH ×4 (07:26→19:59)
[2021-10-09 07:34] LABS: Hematocrit 34.8 % (35.3-44.9); Mean Corpuscular HGB Conc 31.6 g/dL (31.6-35.5); Mean Corpuscular Hemoglobin 27.5 pg (28.0-33.3); Mean Platelet Volume 9.4 fL (9.4-12.4); Platelet Count 293 K/mcL (140-400); Red Cell Distribution Width 16.4 % (11.5-14.5); White Blood Count 6.1 K/mcL (4.3-11.1)
[2021-10-09 07:47] LABS: Calcium 8.6 mg/dL (8.6-10.3); Magnesium 1.8 mg/dL (1.6-2.6); Potassium 3.5 mEq/L (3.5-5.1)
[2021-10-09] MEDS: Aspirin Enteric Coated 81 MG Tablet PO SCH (08:13)
[2021-10-09] MEDS: Spironolactone 25 MG TABLET PO SCH (08:13)
[2021-10-09] MEDS: Apixaban 2.5 MG TABLET PO SCH ×2 (08:13→19:57)
[2021-10-09] MEDS: Magnesium Oxide 400 MG TABLET PO SCH (08:14)
[2021-10-09] MEDS: *HR* Amiodarone 200 MG TABLET PO SCH (08:14)
[2021-10-09] MEDS: Isosorbide MONOnitrate (24 HR) 30 MG TAB.ER.24H PO SCH (08:14)
[2021-10-09] MEDS: Sennosides/Docusate Sodium TABLET PO SCH ×2 (08:14→19:57)
[2021-10-09] MEDS: Metoprolol XL (24 HR) Succ 50 MG TAB.ER.24H PO SCH ×2 (08:14→19:57)
[2021-10-09] MEDS: Furosemide 20 MG/2 ML VIAL IVP SCH (08:14)
[2021-10-09] MEDS ORDERED: *HR* Metformin 500 MG TABLET PO SCH (09:00)
[2021-10-09] MEDS: Budesonide/Formoterol 160/4.5 1 PUFF INH IH SCH ×2 (09:00→20:50)
[2021-10-09] MEDS: Furosemide 20 MG TABLET PO SCH (17:37)
[2021-10-09] MEDS: Gabapentin 300 MG CAPSULE PO SCH (19:56)
[2021-10-09] MEDS: Ibuprofen 400 MG TABLET PO SCH (19:56)
[2021-10-10 07:54] LABS: Hematocrit 32.4 % (35.3-44.9); Hemoglobin 10.4 g/dL (11.5-15.4); Mean Corpuscular HGB Conc 32.1 g/dL (31.6-35.5); Mean Corpuscular Hemoglobin 27.9 pg (28.0-33.3); Mean Corpuscular Volume 86.9 fL (83.0-100.0); Mean Platelet Volume 9.4 fL (9.4-12.4); Platelet Count 285 K/mcL (140-400); Red Blood Count 3.73 M/mcL (3.82-4.97); Red Cell Distribution Width 16.8 % (11.5-14.5); White Blood Count 6.6 K/mcL (4.3-11.1)
[2021-10-10 08:10] LABS: Calcium 8.5 mg/dL (8.6-10.3); Potassium 4.3 mEq/L (3.5-5.1)
[2021-10-10] MEDS: Insulin LISPRO 300 UNITS/3 ML VIAL SUBQ SCH ×4 (08:39→20:34)
[2021-10-10] MEDS: Apixaban 2.5 MG TABLET PO SCH ×2 (08:48→20:33)
[2021-10-10] MEDS: Magnesium Oxide 400 MG TABLET PO SCH (08:48)
[2021-10-10] MEDS: Spironolactone 25 MG TABLET PO SCH (08:48)
[2021-10-10] MEDS: Metoprolol XL (24 HR) Succ 50 MG TAB.ER.24H PO SCH ×2 (08:48→20:33)
[2021-10-10] MEDS: Isosorbide MONOnitrate (24 HR) 30 MG TAB.ER.24H PO SCH (08:48)
[2021-10-10] MEDS: Furosemide 20 MG TABLET PO SCH (08:48)
[2021-10-10] MEDS: Sennosides/Docusate Sodium TABLET PO SCH ×2 (08:48→20:35)
[2021-10-10] MEDS: Aspirin Enteric Coated 81 MG Tablet PO SCH (08:48)
[2021-10-10] MEDS: *HR* Amiodarone 200 MG TABLET PO SCH (08:49)
[2021-10-10] MEDS: Budesonide/Formoterol 160/4.5 1 PUFF INH IH SCH ×2 (09:20→20:49)
[2021-10-10] MEDS: Gabapentin 300 MG CAPSULE PO SCH (20:33)
[2021-10-10] MEDS: Ibuprofen 400 MG TABLET PO SCH (20:33)
[2021-10-11 06:02] LABS: Basophils % 0.6 %; Eosinophils # 0.1 K/mcL (0.0-0.6); Hematocrit 31.6 % (35.3-44.9); Hemoglobin 9.9 g/dL (11.5-15.4); Immature Granulocytes % 0.6 % (0-4); Lymphocytes # 1.2 K/mcL (0.6-4.6); Lymphocytes % 17.7 %; Mean Corpuscular HGB Conc 31.3 g/dL (31.6-35.5); Mean Corpuscular Hemoglobin 27.7 pg (28.0-33.3); Mean Corpuscular Volume 88.3 fL (83.0-100.0); Mean Platelet Volume 9.6 fL (9.4-12.4); Monocytes # 0.6 K/mcL (0.0-1.3); Monocytes % 9.3 %; Neutrophils # 4.8 K/mcL (1.6-8.9); Platelet Count 265 K/mcL (140-400); Red Blood Count 3.58 M/mcL (3.82-4.97); Red Cell Distribution Width 16.9 % (11.5-14.5); Segmented Neutrophils % 70.8 %; White Blood Count 6.7 K/mcL (4.3-11.1)
[2021-10-11 06:30] LABS: Calcium 8.2 mg/dL (8.6-10.3); Magnesium 1.8 mg/dL (1.6-2.6); Potassium 4.3 mEq/L (3.5-5.1)
[2021-10-11] MEDS: Insulin LISPRO 300 UNITS/3 ML VIAL SUBQ SCH ×4 (07:31→22:39)
[2021-10-11] MEDS: Budesonide/Formoterol 160/4.5 1 PUFF INH IH SCH ×2 (08:28→20:45)
[2021-10-11] MEDS: Aspirin Enteric Coated 81 MG Tablet PO SCH (08:34)
[2021-10-11] MEDS: Apixaban 2.5 MG TABLET PO SCH ×2 (08:35→19:50)
[2021-10-11] MEDS: Sennosides/Docusate Sodium TABLET PO SCH ×2 (08:35→19:50)
[2021-10-11] MEDS: Isosorbide MONOnitrate (24 HR) 30 MG TAB.ER.24H PO SCH (08:35)
[2021-10-11] MEDS: Furosemide 20 MG TABLET PO SCH (08:35)
[2021-10-11] MEDS: Magnesium Oxide 400 MG TABLET PO SCH (08:35)
[2021-10-11] MEDS: Metoprolol XL (24 HR) Succ 50 MG TAB.ER.24H PO SCH ×2 (08:35→19:52)
[2021-10-11] MEDS: *HR* Amiodarone 200 MG TABLET PO SCH (08:35)
[2021-10-11] MEDS: Spironolactone 25 MG TABLET PO SCH (08:35)
[2021-10-11] MEDS: Gabapentin 300 MG CAPSULE PO SCH (19:50)
[2021-10-11] MEDS: Ibuprofen 400 MG TABLET PO SCH (19:51)
[2021-10-12 07:23] LABS: Basophils % 0.6 %; Eosinophils # 0.1 K/mcL (0.0-0.6); Eosinophils % 1.2 %; Hematocrit 33.1 % (35.3-44.9); Hemoglobin 10.4 g/dL (11.5-15.4); Immature Granulocytes % 0.9 % (0-4); Lymphocytes # 1.3 K/mcL (0.6-4.6); Lymphocytes % 18.3 %; Mean Corpuscular HGB Conc 31.4 g/dL (31.6-35.5); Mean Corpuscular Volume 89.2 fL (83.0-100.0); Mean Platelet Volume 9.6 fL (9.4-12.4); Monocytes # 0.5 K/mcL (0.0-1.3); Monocytes % 7.8 %; Neutrophils # 4.9 K/mcL (1.6-8.9); Platelet Count 280 K/mcL (140-400); Red Blood Count 3.71 M/mcL (3.82-4.97); Red Cell Distribution Width 17.1 % (11.5-14.5); Segmented Neutrophils % 71.2 %; White Blood Count 6.8 K/mcL (4.3-11.1)
[2021-10-12 07:44] LABS: Calcium 8.7 mg/dL (8.6-10.3); Magnesium 1.8 mg/dL (1.6-2.6); Potassium 4.6 mEq/L (3.5-5.1)
[2021-10-12] MEDS: Magnesium Oxide 400 MG TABLET PO SCH (08:14)
[2021-10-12] MEDS: Insulin LISPRO 300 UNITS/3 ML VIAL SUBQ SCH ×3 (08:14→20:10)
[2021-10-12] MEDS: Apixaban 2.5 MG TABLET PO SCH ×2 (08:15→20:03)
[2021-10-12] MEDS: Metoprolol XL (24 HR) Succ 50 MG TAB.ER.24H PO SCH ×2 (08:15→20:03)
[2021-10-12] MEDS: Isosorbide MONOnitrate (24 HR) 30 MG TAB.ER.24H PO SCH (08:15)
[2021-10-12] MEDS: Aspirin Enteric Coated 81 MG Tablet PO SCH (08:15)
[2021-10-12] MEDS: Spironolactone 25 MG TABLET PO SCH (08:15)
[2021-10-12] MEDS: *HR* Amiodarone 200 MG TABLET PO SCH (08:15)
[2021-10-12] MEDS: Furosemide 20 MG TABLET PO SCH (08:15)
[2021-10-12] MEDS: Sennosides/Docusate Sodium TABLET PO SCH ×2 (08:16→21:24)
[2021-10-12] MEDS: Budesonide/Formoterol 160/4.5 1 PUFF INH IH SCH ×2 (09:07→21:44)
[2021-10-12] MEDS ORDERED: hydrALAZINE 25 MG TABLET PO PRN (11:31)
[2021-10-12] MEDS: Ibuprofen 400 MG TABLET PO SCH (20:02)
[2021-10-12] MEDS: Gabapentin 300 MG CAPSULE PO SCH (20:03)
[2021-10-13 07:05] VITALS: BP 136/72; PULSE 69; TEMP 98.2
[2021-10-13] MEDS: Insulin LISPRO 300 UNITS/3 ML VIAL SUBQ SCH ×3 (07:34→17:14)
[2021-10-13] MEDS: Furosemide 20 MG TABLET PO SCH (07:35)
[2021-10-13] MEDS: Magnesium Oxide 400 MG TABLET PO SCH (07:35)
[2021-10-13] MEDS: Sennosides/Docusate Sodium TABLET PO SCH (07:35)
[2021-10-13] MEDS: Metoprolol XL (24 HR) Succ 50 MG TAB.ER.24H PO SCH (07:35)
[2021-10-13] MEDS: Aspirin Enteric Coated 81 MG Tablet PO SCH (07:35)
[2021-10-13] MEDS: Apixaban 2.5 MG TABLET PO SCH (07:35)
[2021-10-13] MEDS: Isosorbide MONOnitrate (24 HR) 30 MG TAB.ER.24H PO SCH (07:35)
[2021-10-13] MEDS: *HR* Amiodarone 200 MG TABLET PO SCH (07:35)
[2021-10-13 07:49] LABS: Basophils % 0.7 %; Eosinophils # 0.1 K/mcL (0.0-0.6); Eosinophils % 1.7 %; Hematocrit 31.9 % (35.3-44.9); Hemoglobin 10.1 g/dL (11.5-15.4); Immature Granulocytes % 0.5 % (0-4); Lymphocytes # 1.2 K/mcL (0.6-4.6); Mean Corpuscular HGB Conc 31.7 g/dL (31.6-35.5); Mean Corpuscular Hemoglobin 27.8 pg (28.0-33.3); Mean Corpuscular Volume 87.9 fL (83.0-100.0); Monocytes # 0.5 K/mcL (0.0-1.3); Platelet Count 265 K/mcL (140-400); Red Blood Count 3.63 M/mcL (3.82-4.97); Segmented Neutrophils % 68.1 %; White Blood Count 5.9 K/mcL (4.3-11.1)
[2021-10-13 08:14] LABS: BUN/Creatinine Ratio 20 (6-26); Blood Urea Nitrogen 21 mg/dL (8-23); Calcium 8.5 mg/dL (8.6-10.3); Carbon Dioxide 27 mEq/L (23-29); Chloride 100 mEq/L (98-107); Glucose 101 mg/dL (70-105); Magnesium 1.7 mg/dL (1.6-2.6); Osmolality,Calculated 279 (280-300); Potassium 4.7 mEq/L (3.5-5.1); Sodium 133 mEq/L (136-145); eGFR For African Americans > 60 (> 60); eGFR For Non-African Americans 50 (> 60)
[2021-10-13] MEDS: Budesonide/Formoterol 160/4.5 1 PUFF INH IH SCH (09:29)
[2021-10-13 09:32] VITALS: RESP 18; O2SAT 96
== END 2021-10-13 18:10 | DRG 291 ==
LOC: INPPIK 09:58 → EMEROOPIK 09:58 → INPPIK 13:46
PROVIDERS: ADMIT Family Medicine; ATTEND Family Medicine

== ENCOUNTER 2021-10-13 14:41 | Inpatient (IN) ==
[2021-10-13] MEDS ORDERED: Levalbuterol Neb 1.25 MG/3 ML IH PRN (15:34)
[2021-10-13] MEDS: Budesonide/Formoterol 160/4.5 1 PUFF INH IH SCH (20:03)
[2021-10-13] MEDS: Ibuprofen 400 MG TABLET PO SCH (20:25)
[2021-10-13] MEDS: Apixaban 5 MG TABLET PO SCH (20:26)
[2021-10-13] MEDS: Gabapentin 300 MG CAPSULE PO SCH (20:26)
[2021-10-13] MEDS: Sennosides/Docusate Sodium TABLET PO SCH (20:26)
[2021-10-13] MEDS: Metoprolol XL (24 HR) Succ 50 MG TAB.ER.24H PO SCH (20:26)
[2021-10-13] MEDS ORDERED: NON-FORMULARY MEDICATION 1 EACH EACH (Ibuprofen/Diphenhydramine Cit [Advil Pm Caplet] 1 EA PO SCH (21:00)
[2021-10-14 08:38] LABS: Basophils % 0.7 %; Eosinophils # 0.1 K/mcL (0.0-0.6); Eosinophils % 1.7 %; Hematocrit 33.6 % (35.3-44.9); Hemoglobin 10.5 g/dL (11.5-15.4); Lymphocytes # 1.1 K/mcL (0.6-4.6); Mean Corpuscular HGB Conc 31.3 g/dL (31.6-35.5); Mean Corpuscular Hemoglobin 27.6 pg (28.0-33.3); Mean Corpuscular Volume 88.2 fL (83.0-100.0); Mean Platelet Volume 10.3 fL (9.4-12.4); Monocytes # 0.5 K/mcL (0.0-1.3); Monocytes % 9.1 %; Neutrophils # 3.9 K/mcL (1.6-8.9); Platelet Count 287 K/mcL (140-400); Red Blood Count 3.81 M/mcL (3.82-4.97); Segmented Neutrophils % 68.5 %; White Blood Count 5.7 K/mcL (4.3-11.1)
[2021-10-14] MEDS: Aspirin Enteric Coated 81 MG Tablet PO SCH (08:46)
[2021-10-14] MEDS: Spironolactone 25 MG TABLET PO SCH (08:46)
[2021-10-14] MEDS: Metoprolol XL (24 HR) Succ 50 MG TAB.ER.24H PO SCH ×2 (08:46→20:11)
[2021-10-14] MEDS: *HR* Amiodarone 200 MG TABLET PO SCH (08:47)
[2021-10-14] MEDS: Isosorbide MONOnitrate (24 HR) 30 MG TAB.ER.24H PO SCH (08:47)
[2021-10-14] MEDS: Cyanocobalamin (B-12) 1,000 MCG TABLET PO SCH (08:47)
[2021-10-14] MEDS: Acetaminophen 325 MG TABLET PO PRN ×2 (08:47→20:14)
[2021-10-14] MEDS: Furosemide 20 MG TABLET PO SCH (08:47)
[2021-10-14] MEDS: Sennosides/Docusate Sodium TABLET PO SCH ×2 (08:47→20:11)
[2021-10-14] MEDS: Magnesium Oxide 400 MG TABLET PO SCH (08:48)
[2021-10-14] MEDS: Apixaban 5 MG TABLET PO SCH ×2 (08:48→20:11)
[2021-10-14] MEDS: Vit C/E/Zn/Coppr/Lutein/Zeaxan [Preservision Areds 2] PO SCH (08:48)
[2021-10-14] MEDS ORDERED: *HR* Metformin 500 MG TABLET PO SCH (09:00)
[2021-10-14] MEDS: Budesonide/Formoterol 160/4.5 1 PUFF INH IH SCH ×2 (09:37→21:34)
[2021-10-14 09:50] LABS: BUN/Creatinine Ratio 19 (6-26); Blood Urea Nitrogen 19 mg/dL (8-23); Calcium 8.9 mg/dL (8.6-10.3); Carbon Dioxide 26 mEq/L (23-29); Chloride 99 mEq/L (98-107); Glucose 101 mg/dL (70-105); Osmolality,Calculated 278 (280-300); Sodium 133 mEq/L (136-145); eGFR For African Americans > 60 (> 60); eGFR For Non-African Americans 52 (> 60)
[2021-10-14] MEDS ORDERED: *HR* Dextrose 50 % in Water (Syg) 50 ML SYRINGE IVP PRN (12:18)
[2021-10-14] MEDS ORDERED: D5% in Water 1,000 ML IVC PRN (12:18)
[2021-10-14] MEDS ORDERED: Dextrose Gel 15 GM/37.5 ML TUBE PO PRN ×2 (12:18)
[2021-10-14] MEDS: Insulin LISPRO 300 UNITS/3 ML VIAL SUBQ SCH ×2 (17:19→20:13)
[2021-10-14] MEDS: Ibuprofen 400 MG TABLET PO SCH (20:10)
[2021-10-14] MEDS: Gabapentin 300 MG CAPSULE PO SCH (20:13)
[2021-10-15] MEDS: Acetaminophen 325 MG TABLET PO PRN (06:09)
[2021-10-15] MEDS: Insulin LISPRO 300 UNITS/3 ML VIAL SUBQ SCH ×4 (07:36→20:14)
[2021-10-15] MEDS: Budesonide/Formoterol 160/4.5 1 PUFF INH IH SCH ×2 (08:38→21:35)
[2021-10-15] MEDS: Metoprolol XL (24 HR) Succ 50 MG TAB.ER.24H PO SCH ×2 (08:48→20:17)
[2021-10-15] MEDS: *HR* Amiodarone 200 MG TABLET PO SCH (08:48)
[2021-10-15] MEDS: Magnesium Oxide 400 MG TABLET PO SCH (08:50)
[2021-10-15] MEDS: Cyanocobalamin (B-12) 1,000 MCG TABLET PO SCH (08:50)
[2021-10-15] MEDS: Isosorbide MONOnitrate (24 HR) 30 MG TAB.ER.24H PO SCH (08:50)
[2021-10-15] MEDS: Sennosides/Docusate Sodium TABLET PO SCH ×2 (08:50→20:16)
[2021-10-15] MEDS: Furosemide 20 MG TABLET PO SCH (08:51)
[2021-10-15] MEDS: Vit C/E/Zn/Coppr/Lutein/Zeaxan [Preservision Areds 2] PO SCH (08:51)
[2021-10-15] MEDS: Spironolactone 25 MG TABLET PO SCH (08:51)
[2021-10-15] MEDS: Aspirin Enteric Coated 81 MG Tablet PO SCH (08:51)
[2021-10-15] MEDS: Apixaban 5 MG TABLET PO SCH ×2 (08:51→20:17)
[2021-10-15] MEDS: Gabapentin 300 MG CAPSULE PO SCH (20:16)
[2021-10-15] MEDS: Ibuprofen 400 MG TABLET PO SCH (20:17)
[2021-10-16] MEDS: Insulin LISPRO 300 UNITS/3 ML VIAL SUBQ SCH ×4 (07:44→20:24)
[2021-10-16] MEDS: Vit C/E/Zn/Coppr/Lutein/Zeaxan [Preservision Areds 2] PO SCH (07:47)
[2021-10-16] MEDS: Furosemide 20 MG TABLET PO SCH (08:00)
[2021-10-16] MEDS: Apixaban 5 MG TABLET PO SCH ×2 (08:00→20:18)
[2021-10-16] MEDS: Magnesium Oxide 400 MG TABLET PO SCH (08:00)
[2021-10-16] MEDS: Metoprolol XL (24 HR) Succ 50 MG TAB.ER.24H PO SCH ×2 (08:00→20:18)
[2021-10-16] MEDS: Spironolactone 25 MG TABLET PO SCH (08:01)
[2021-10-16] MEDS: Isosorbide MONOnitrate (24 HR) 30 MG TAB.ER.24H PO SCH (08:01)
[2021-10-16] MEDS: Cyanocobalamin (B-12) 1,000 MCG TABLET PO SCH (08:01)
[2021-10-16] MEDS: *HR* Amiodarone 200 MG TABLET PO SCH (08:01)
[2021-10-16] MEDS: Sennosides/Docusate Sodium TABLET PO SCH ×2 (08:01→20:24)
[2021-10-16] MEDS: Aspirin Enteric Coated 81 MG Tablet PO SCH (08:01)
[2021-10-16] MEDS: Budesonide/Formoterol 160/4.5 1 PUFF INH IH SCH ×2 (08:39→21:27)
[2021-10-16] MEDS: Gabapentin 300 MG CAPSULE PO SCH (20:17)
[2021-10-16] MEDS: Ibuprofen 400 MG TABLET PO SCH (20:18)
[2021-10-17] MEDS: Budesonide/Formoterol 160/4.5 1 PUFF INH IH SCH ×2 (08:01→21:57)
[2021-10-17] MEDS: Magnesium Oxide 400 MG TABLET PO SCH (10:55)
[2021-10-17] MEDS: Furosemide 20 MG TABLET PO SCH (10:55)
[2021-10-17] MEDS: Apixaban 5 MG TABLET PO SCH ×2 (10:55→20:32)
[2021-10-17] MEDS: Metoprolol XL (24 HR) Succ 50 MG TAB.ER.24H PO SCH ×2 (10:55→20:33)
[2021-10-17] MEDS: Sennosides/Docusate Sodium TABLET PO SCH ×2 (10:55→20:33)
[2021-10-17] MEDS: Aspirin Enteric Coated 81 MG Tablet PO SCH (10:55)
[2021-10-17] MEDS: Vit C/E/Zn/Coppr/Lutein/Zeaxan [Preservision Areds 2] PO SCH (10:56)
[2021-10-17] MEDS: Spironolactone 25 MG TABLET PO SCH (10:56)
[2021-10-17] MEDS: *HR* Amiodarone 200 MG TABLET PO SCH (10:56)
[2021-10-17] MEDS: Isosorbide MONOnitrate (24 HR) 30 MG TAB.ER.24H PO SCH (10:56)
[2021-10-17] MEDS: Cyanocobalamin (B-12) 1,000 MCG TABLET PO SCH (10:56)
[2021-10-17] MEDS: Insulin LISPRO 300 UNITS/3 ML VIAL SUBQ SCH ×4 (10:56→20:33)
[2021-10-17] MEDS: Gabapentin 300 MG CAPSULE PO SCH (20:33)
[2021-10-17] MEDS: Ibuprofen 400 MG TABLET PO SCH (20:33)
[2021-10-18] MEDS: Budesonide/Formoterol 160/4.5 1 PUFF INH IH SCH ×2 (09:30→21:41)
[2021-10-18] MEDS: Isosorbide MONOnitrate (24 HR) 30 MG TAB.ER.24H PO SCH (11:10)
[2021-10-18] MEDS: Insulin LISPRO 300 UNITS/3 ML VIAL SUBQ SCH ×4 (11:10→20:27)
[2021-10-18] MEDS: Magnesium Oxide 400 MG TABLET PO SCH (11:11)
[2021-10-18] MEDS: *HR* Amiodarone 200 MG TABLET PO SCH (11:11)
[2021-10-18] MEDS: Furosemide 20 MG TABLET PO SCH (11:11)
[2021-10-18] MEDS: Aspirin Enteric Coated 81 MG Tablet PO SCH (11:11)
[2021-10-18] MEDS: Metoprolol XL (24 HR) Succ 50 MG TAB.ER.24H PO SCH ×2 (11:11→20:21)
[2021-10-18] MEDS: Vit C/E/Zn/Coppr/Lutein/Zeaxan [Preservision Areds 2] PO SCH (11:11)
[2021-10-18] MEDS: Cyanocobalamin (B-12) 1,000 MCG TABLET PO SCH (11:11)
[2021-10-18] MEDS: Spironolactone 25 MG TABLET PO SCH (11:11)
[2021-10-18] MEDS: Sennosides/Docusate Sodium TABLET PO SCH ×2 (11:12→20:21)
[2021-10-18] MEDS: Acetaminophen 325 MG TABLET PO PRN (14:15)
[2021-10-18] MEDS: Ibuprofen 400 MG TABLET PO SCH (20:21)
[2021-10-18] MEDS: Gabapentin 300 MG CAPSULE PO SCH (20:22)
[2021-10-19] MEDS: Insulin LISPRO 300 UNITS/3 ML VIAL SUBQ SCH ×4 (07:12→19:56)
[2021-10-19] MEDS: Aspirin Enteric Coated 81 MG Tablet PO SCH (08:20)
[2021-10-19] MEDS: Sennosides/Docusate Sodium TABLET PO SCH ×2 (08:20→20:07)
[2021-10-19] MEDS: *HR* Amiodarone 200 MG TABLET PO SCH (08:20)
[2021-10-19] MEDS: Furosemide 20 MG TABLET PO SCH (08:20)
[2021-10-19] MEDS: Cyanocobalamin (B-12) 1,000 MCG TABLET PO SCH (08:20)
[2021-10-19] MEDS: Magnesium Oxide 400 MG TABLET PO SCH (08:20)
[2021-10-19] MEDS: Vit C/E/Zn/Coppr/Lutein/Zeaxan [Preservision Areds 2] PO SCH (08:21)
[2021-10-19] MEDS: Spironolactone 25 MG TABLET PO SCH (08:21)
[2021-10-19] MEDS: Isosorbide MONOnitrate (24 HR) 30 MG TAB.ER.24H PO SCH (08:21)
[2021-10-19] MEDS: Metoprolol XL (24 HR) Succ 50 MG TAB.ER.24H PO SCH ×2 (08:21→20:37)
[2021-10-19] MEDS: Budesonide/Formoterol 160/4.5 1 PUFF INH IH SCH ×2 (09:47→20:51)
[2021-10-19 18:56] VITALS: PULSE 62
[2021-10-19] MEDS: Ibuprofen 400 MG TABLET PO SCH (20:06)
[2021-10-19] MEDS: Gabapentin 300 MG CAPSULE PO SCH (20:36)
[2021-10-20 06:48] VITALS: BP 146/64; RESP 16; TEMP 97.9
[2021-10-20] MEDS: Spironolactone 25 MG TABLET PO SCH (08:26)
[2021-10-20] MEDS: *HR* Amiodarone 200 MG TABLET PO SCH (08:26)
[2021-10-20] MEDS: Isosorbide MONOnitrate (24 HR) 30 MG TAB.ER.24H PO SCH (08:26)
[2021-10-20] MEDS: Metoprolol XL (24 HR) Succ 50 MG TAB.ER.24H PO SCH (08:26)
[2021-10-20] MEDS: Insulin LISPRO 300 UNITS/3 ML VIAL SUBQ SCH (08:28)
[2021-10-20] MEDS: Aspirin Enteric Coated 81 MG Tablet PO SCH (08:28)
[2021-10-20] MEDS: Furosemide 20 MG TABLET PO SCH (08:29)
[2021-10-20] MEDS: Cyanocobalamin (B-12) 1,000 MCG TABLET PO SCH (08:29)
[2021-10-20] MEDS: Magnesium Oxide 400 MG TABLET PO SCH (08:29)
[2021-10-20] MEDS: Sennosides/Docusate Sodium TABLET PO SCH (08:29)
[2021-10-20] MEDS: Apixaban 5 MG TABLET PO SCH (08:29)
[2021-10-20] MEDS: Vit C/E/Zn/Coppr/Lutein/Zeaxan [Preservision Areds 2] PO SCH (08:29)
[2021-10-20] MEDS: Budesonide/Formoterol 160/4.5 1 PUFF INH IH SCH (09:12)
[2021-10-20 09:15] VITALS: O2SAT 96
== END 2021-10-20 10:20 | disposition home health service (06) | DRG 291 ==
LOC: INPPIK 18:29
PROVIDERS: ADMIT Family Medicine; ATTEND Emergency Medicine